=== PATIENT | female | born 1975 ===

== ENCOUNTER 2021-11-23 08:08 | Outpatient (REF) | payer OTHER, SELFPAY ==
[2021-11-23 11:23] LABS: MANUAL DIFF FLAG NO
[2021-11-23 11:26] LABS: Basophils Percent Auto 0.5 % (0-2); Eosinophils Absolute Auto 0.1 X10*3/uL (0.0-0.4); Eosinophils Percent Auto 1.6 % (0-4); Hemoglobin 13.1 g/dl (12.0-16.0); Imm Gran Abs Auto 0.01 X10*3/uL (0.00-0.03); Imm Gran Pct Auto 0.2 % (0.0-0.4); Lymphocytes Absolute Auto 1.6 X10*3/uL (1.2-4.9); Lymphocytes Percent Auto 24.8 % (20-40); Mean Corpuscular HGB Conc 33.6 g/dl (31.0-35.0); Mean Corpuscular Hemoglobin 28.7 pg (27.0-33.0); Mean Corpuscular Volume 85.3 fL (80.0-98.0); Monocytes Absolute Auto 0.6 X10*3/uL (0.1-1.2); Monocytes Percent Auto 9.8 % (2-11); Neutrophils Percent Auto 63.1 % (45-73); Platelet Count 366 X10*3/uL (160-400); Red Blood Count 4.57 X10*6/uL (4.20-5.50); Red Cell Distribution Width 13.5 % (11.0-16.0); White Blood Count 6.3 X10*3/uL (4.8-10.8)
[2021-11-23 11:39] LABS: Alanine Aminotransferase 20 U/L (0-31); Albumin Level 4.7 g/dL (3.5-5.0); Alkaline Phosphatase 83 U/L (39-117); Anion Gap 13 (12-20); Aspartate Amino Transferase 18 U/L (5-31); Bilirubin Total 0.4 mg/dL (0.0-1.0); Blood Urea Nitrogen 17 mg/dL (9-16); Calcium 9.9 mg/dL (8.4-10.2); Carbon Dioxide 29 mmol/L (22-29); Chloride 99 mmol/L (96-108); Cholesterol 195 mg/dL; Estimated Glomerular Filt Rate > 60; Glucose Fasting 100 mg/dL (60-99); HDL Cholesterol 57 mg/dL; LDL Cholesterol Calculated 118 mg/dl; Potassium 4.1 mmol/L (3.3-5.1); Sodium 137 mmol/L (135-145); Total Protein 7.9 g/dL (6.5-8.0); Triglycerides 103 mg/dL
[2021-11-23 12:03] LABS: Vitamin D 25-OH Total 31.6 ng/mL (>30)
== END 2021-11-23 08:09 | disposition home or self-care (01) ==
LOC: HO.HMGCLDS 08:08
PROVIDERS: PCP Internal Medicine; Visit Provider Internal Medicine
DX: Z00.01 Encounter for general adult medical examination with abnormal findings (principal); E28.2 Polycystic ovarian syndrome; L68.0 Hirsutism
CPT/HCPCS: 36415; 80053; 80061; 82306; 85025

== ENCOUNTER 2021-12-19 07:29 | Outpatient (REF) | payer OTHER, SELFPAY ==
--- NOTE | ~2021-12-19 | XR_ITS ---
EXAMINATION: XR KNEES, STANDING AP XR KNEE, LEFT CLINICAL INFORMATION: Knee pain COMPARISON: None TECHNIQUE: Standing AP view of both knees is performed along with lateral and axial patella views of the left knee. FINDINGS: Left: No fracture, dislocation, or suprapatellar effusion. No joint narrowing or erosive changes or chondrocalcinosis. Hoffa's fat pad appears normal. Axial view patella shows no lateralization or tilting. Normal bony mineralization. No destructive process or periostitis. Right: No joint narrowing or erosive change or chondrocalcinosis. Normal bony mineralization. No fracture or destructive process. XR/XR knee standing BI IMPRESSION: Unremarkable bilateral knees.
--- NOTE | ~2021-12-19 | XR_ITS ---
EXAMINATION: XR KNEES, STANDING AP XR KNEE, LEFT CLINICAL INFORMATION: Knee pain COMPARISON: None TECHNIQUE: Standing AP view of both knees is performed along with lateral and axial patella views of the left knee. FINDINGS: Left: No fracture, dislocation, or suprapatellar effusion. No joint narrowing or erosive changes or chondrocalcinosis. Hoffa's fat pad appears normal. Axial view patella shows no lateralization or tilting. Normal bony mineralization. No destructive process or periostitis. Right: No joint narrowing or erosive change or chondrocalcinosis. Normal bony mineralization. No fracture or destructive process. XR/XR knee LT 2V IMPRESSION: Unremarkable bilateral knees.
== END 2021-12-19 07:30 | disposition home or self-care (01) ==
LOC: HO.HOSX 07:29
PROVIDERS: Visit Provider Physician Assistant
DX: M25.562 Pain in left knee (principal); M22.2X2 Patellofemoral disorders, left knee; R11.2 Nausea with vomiting, unspecified; R10.9 Unspecified abdominal pain; T40.2X5A Adverse effect of other opioids, initial encounter; Y92.9 Unspecified place or not applicable; Z87.891 Personal history of nicotine dependence
CPT/HCPCS: 20610; 73560; 73565; 99202; J1020

== ENCOUNTER 2022-01-12 11:00 | Outpatient (RCR) | payer OTHER, SELFPAY ==
--- NOTE | 2022-01-02 10:49 | MHC.PT.EP ---
[facility] [place] Office [place] Office [place] Office [address] [phone] F: [phone] F: [phone] F: [phone] F: [phone] Physical Therapy Plan of Care Date of Evaluation: Date of Surgery: n/a Diagnosis: L knee patellofemoral disorder Assessment: Patient is a 46 year old female presenting to PT with complaints of pain in her L knee. Pt reports onset of pain began initially 10 years due to insidious onset. She presents today with impairments in pain, ROM, hip strength, balance, and quad muscle length/soft tissue restrictions. Pt's current occupation is none, with baseline physical activities including ambulation, stair negotiation, ADLs, and squatting. Pt expresses residential goal of reducing pain, and is motivated to work towards this in PT. Clinical presentation today is most consistent with signs and sx associated with possible L patellofemoral syndrome and pt will benefit from skilled PT to address the following problems and impairments noted upon evaluation: pain, ROM, hip strength, balance, and quad muscle length/soft tissue restrictions. These problems limit the patient with the following functional activities: ambulation, stair negotiation, ADLs, and squatting. The prescribed treatment plan of care is medically necessary. Co-morbidities of none were identified and taken into considerations of plan of care. Pt was educated on HEP, role of PT, prognosis, POC. Frequency and Duration: The patient will be seen 2 x week x 4 weeks Short Term Goals: Pt will demonstrate equal ROM for knee flexion in 2 weeks. Pt will demonstrate improved hip strength by 1/3 MMT for improved lumbopelvic stability in 2 weeks. Pt will demonstrate negative prone quad test in 2 weeks for improved muscle length. [employer] Goals: Pt will demonstrate improved LEFI score by 9 points in 4 weeks for improved overall functional mobility. Pt will demonstrate ability to ambulate with min to no pain in 4 weeks for return to PLOF. Pt will demonstrate ability to negotiate stairs with min to no pain in 4 weeks for improved access to her home. Treatment Plan: Modalities to reduce pain, spasms and effusion. Manual therapy to restore motion and function. Therapeutic exercise to improve strength and flexibility. Neuromuscular re-education for posture and balance. Therapeutic activities to return to functional activities of daily living. Electronically signed by: Fouzia Santana PT, DPT, ATC Please sign and return to therapist. Thank you for your referral.
--- NOTE | 2022-01-16 09:17 | MHC.PT.DC ---
[facility] [place] Office [place] Office [place] Office [address] [facility] [phone] F: [phone] F: [phone] F: [phone] F: [phone] Physical Therapy Discharge Report Diagnosis: L knee patellofemoral disorder Date of Surgery: n/a Date of Evaluation: 01/02/22 Date of Discharge: 01/16/22 Treatments to Date: 4 Cancellations to Date: 1 No Shows to Date: 0 Discharge Status: Patient Elected to Stop Discharge Summary: Pt self d/c from skilled PT at this time. She called stating she feels better and will continue with her HEP at home. Electronically signed by: Fouzia Santana, PT, DPT, ATC Please sign and return to therapist. Thank you for your referral.
== END 2022-01-16 09:17 | disposition home or self-care (01) ==
LOC: HO.PTCHIC 11:00
PROVIDERS: PCP Internal Medicine; Visit Provider Physician Assistant
DX: M22.2X2 Patellofemoral disorders, left knee (principal)
CPT/HCPCS: 97110; 97140; 97161

== ENCOUNTER → 2022-02-16 13:44 | Outpatient (BNVA) | payer OTHER, SELFPAY | PROVIDERS: PCP Internal Medicine; Visit Provider Nurse Practitioner | DX: K21.9 Gastro-esophageal reflux disease without esophagitis (principal); K58.9 Irritable bowel syndrome, unspecified | CPT/HCPCS: 99212 ==

== ENCOUNTER 2022-03-28 14:17 | Outpatient (REF) | payer OTHER, SELFPAY ==
[2022-03-31 13:02] LABS: HPV mRNA E6/E7 rflx Not Detected (Not Detected)
== END 2022-03-28 14:18 | disposition home or self-care (01) ==
LOC: HO.LAB 14:17
PROVIDERS: PCP Internal Medicine; Visit Provider Advanced Practice Midwife
DX: Z01.419 Encounter for gynecological examination (general) (routine) without abnormal findings (principal)
CPT/HCPCS: 87624; 88142

== ENCOUNTER 2022-10-11 06:18 | Day surgery (SDC) | payer OTHER, SELFPAY ==
[2022-10-05 11:45] VITALS: BMI 32.8
--- NOTE | 2022-10-10 10:14 | HO.ANESPROP2 ---
Documented by User: Susie Liz NP 10/10/22 10:17 HPI - Anesthesia Eval Consult details Narrative: 47yo F for Colonoscopy PMFSH Active Problems Active Problems: All Active Problems (Updated 02/06/22 @ 11:37 by VAZQUEZ Boland) Patellofemoral syndrome of left knee (Acute) IBS (irritable bowel syndrome) (Acute) GERD (gastroesophageal reflux disease) (Acute) Alcohol use disorder, mild, abuse (Acute) Left lateral knee pain (Acute) PCOS (polycystic ovarian syndrome) (Acute) Hirsutism (Acute) Past Medical History Medical History Alcohol use disorder, mild, abuse GERD (gastroesophageal reflux disease) Hirsutism History of in vitro fertilization Left lateral knee pain PCOS (polycystic ovarian syndrome) Family History Family History Mother History of breast cancer Cervical cancer Family/Other History of breast cancer Surgical History Surgical History H/O esophagogastroduodenoscopy History of section History of cholecystectomy History of tubal ligation Social History Social History Housing: House Alcohol intake: current Alcohol intake frequency: a few times a month Patient Tobacco Use Status: Former Tobacco user Quit Date: >20yrs ago e-Cigarette/Vaping Use: Never Used Use of substances other than those prescribed or required for medical reasons: No Are you DNR?: No Advance Directives: No Advance Directives Information Provided: Yes service: No Current occupational status: unemployed Sexual orientation: Straight/Heterosexual Gender identity: Female Meds Allergies Allergy/AdvReac Type Severity Reaction Status Date / Time codeine AdvReac Intermediate N/V - abd. Verified 10/11/22 06:56 pain Exam Exam Date and Time: October 10, 2022 1014 Height,Weight and Vital Signs: Height 5 ft Weight 76.204 kg Assessment and Plan Assessment Anesthesia Assessment: Chart Reviewed Documented by User: Melania Ruiz MD 10/11/22 07:22 [facility] Past Medical History Medical History Alcohol use disorder, mild, abuse GERD (gastroesophageal reflux disease) Hirsutism History of in vitro fertilization Left lateral knee pain PCOS (polycystic ovarian syndrome) Functional capacity: independent ambulation Patient : No Family History Family History Mother History of breast cancer Cervical cancer Family/Other History of breast cancer Family history of problems with anesthesia: No Surgical History Surgical History H/O esophagogastroduodenoscopy History of section History of cholecystectomy History of tubal ligation History of Problems with Anesthesia: No Social History Social History Housing: House Alcohol intake: current Alcohol intake frequency: a few times a month Patient Tobacco Use Status: Former Tobacco user Quit Date: >20yrs ago e-Cigarette/Vaping Use: Never Used Use of substances other than those prescribed or required for medical reasons: No Are you DNR?: No Advance Directives: No Advance Directives Information Provided: Yes service: No Current occupational status: unemployed Sexual orientation: Straight/Heterosexual Gender identity: Female Meds Allergies Allergy/AdvReac Type Severity Reaction Status Date / Time codeine AdvReac Intermediate N/V - abd. Verified 10/11/22 06:56 pain Exam Airway Mallampati Class: II TM Dist: >3cm Neck ROM: Full Heart: RRR Lungs: CTA Assessment and Plan Final Anesthetic Review Family History of Problems with Anesthesia: No History of Problems with Anesthesia: No ASA Class: II Final Preanesthetic Review: No Changes in Pt Med Stat, Meds/Allgs Chart Reviewed, Consent Obtained/Reviewed and Anes Risks/Benef Reviewed Patient Risk: Low Procedure Risk: Low Anesthetic Plan Anesthetic Plan: MAC: Disposition: Standard PACU
[2022-10-11 06:35] VITALS: BP 139/86; PULSE 107; RESP 15; TEMP 37.2; O2SAT 99
[2022-10-11] MEDS: Lactated Ringers 1,000 ML 100 ML IVCONT (06:56)
--- NOTE | 2022-10-11 07:26 | MHC.SHP ---
Pre-Procedural Eval Section A Date of Service: 10/11/22 Section B Chief Complaint: Screening Details of Present Illness: 47 y.o F with PMH of GERD, IBS, PCOS, who is here for her index screening colonoscopy. Present Medications: see Short Stay Collaborative assessment Allergies: Allergies Allergy/AdvReac Type Severity Reaction Status Date / Time codeine AdvReac Intermediate N/V - abd. Verified 10/11/22 06:56 pain Review of Systems Review of Systems Comment: 10 point ROS negative except as above Exam Exam Comment: Gen appear: No acute distress, well nourished HEENT: no icterus Chest: No overt resp distress Abd: soft, nontender, nondistended Psych: Stable affect, answering questions appropriately Neuro: A/Ox3 noted to move all extremities spontaneously Ext: no peripheral edema Plan Diagnosis/Plan: Unchanged I have reviewed the history and physical and performed a pertinent physical examination on my patient. No changes have occurred unless specified. Time Spent With Patient Time: Total time managing care of this patient today ____ minutes.
--- NOTE | 2022-10-11 07:28 | P.OP_ITS ---
Operative Note Operative Note Date of Service: 10/11/22 Narrative: Procedure: Colonoscopy Indication: Screening Endoscopist: Angélica Cat MD Anesthesia Provider: Maggie Suazo CRNA Anesthesia type: MAC Instrument: Olympus [id number]-H190L Consent: Indication, risks vs benefits, and alternatives were discussed with the patient who gave written informed consent to proceed. EKG, pulse, pulse oximetry and blood pressure were monitored throughout the procedure. Please see anesthesia flowsheet. Procedure: The patient was brought to the procedure room and placed in the left lateral decubitus position. IV medications were administered by the anesthesia provider in attendance. A digital rectal exam was performed which was normal. The colonoscope was then inserted through the anus and advanced through the colon to the cecum at 80 cm, and terminal ileum. Appendiceal orifice and ileocecal valve were identified. Mucosa was carefully examined under high definition white light as the instrument was slowly withdrawn in a retrograde panoramic fashion. Retroflexion was performed in ascending colon and rectum. The procedure was not difficult. There were no immediate obvious complications. The quality of the prep was BBPS: 3+3+3 = excellent Withdrawal time 16 minutes. Limitations: No limitations. Findings: Mucosa: Normal to cecum and terminal ileum. Protruding lesions: * 1 semi-pedunculated polyp of size 8 mm in sigmoid colon. Hot snare polypectomy was performed. The polyp was completely removed and retrieved. * 1 sessile polyp of size 6 mm in sigmoid colon. Cold snare polypectomy was performed. The polyp was completely removed and retrieved. * Medium external hemorrhoids without stigmata of recent bleeding. Excavated lesions: * Few small mouthed diverticula in the sigmoid colon. Impression: 1. Normal colon and terminal ileum mucosa 2. Total of 2 polyps removed from sigmoid colon. 3. Mild sigmoid diverticulosis 4. Internal hemorrhoids Recommendations: - Follow path results. - Repeat colonoscopy in 7-10 years if polyps are adenomas.
[2022-10-11 08:14] VITALS: BP 121/76; PULSE 92; RESP 16; TEMP 36.8; O2SAT 100
[2022-10-11 08:29] VITALS: BP 121/72; PULSE 84; RESP 16; TEMP 36.4; O2SAT 100
--- NOTE | 2022-10-11 09:12 | HO.POSTANES ---
Post Anesthesia Evaluation Post Anesthesia Evaluation Vital Signs: Vital Signs Temp Pulse Resp BP Pulse Ox O2 Del Method 10/11/22 08:29 97.6 F 84 16 121/72 100 Room Air 10/11/22 08:14 98.2 F 92 16 121/76 100 Room Air 10/11/22 06:35 98.9 F 107 H 15 139/86 99 Room Air Anesthesia: Monitored Mental Status: Awake Pain Control: Satisfactory Nausea/Vomiting: None Hydration: Adequate Anesthesia-Related Issues: No Anes. Related Issues
== END 2022-10-11 09:08 ==
PROVIDERS: PCP Internal Medicine; Visit Provider Internal Medicine
PROC: 0DJD8ZZ Inspection of Lower Intestinal Tract, Via Natural or Artificial Opening Endoscopic (ICD-10-PCS; CPT 45378; principal; 2022-10-11 07:30)
DX: Z12.11 Encounter for screening for malignant neoplasm of colon (principal); D12.5 Benign neoplasm of sigmoid colon; K57.30 Diverticulosis of large intestine without perforation or abscess without bleeding; K64.8 Other hemorrhoids; K64.4 Residual hemorrhoidal skin tags; K58.9 Irritable bowel syndrome, unspecified; K21.9 Gastro-esophageal reflux disease without esophagitis; F10.10 Alcohol abuse, uncomplicated; E28.2 Polycystic ovarian syndrome; L68.0 Hirsutism; Z79.899 Other long term (current) drug therapy; Z88.8 Allergy status to other drugs, medicaments and biological substances; Z90.49 Acquired absence of other specified parts of digestive tract; Z87.891 Personal history of nicotine dependence
CPT/HCPCS: 45385; 88305

== ENCOUNTER → 2022-10-25 12:00 | Outpatient (BNVA) | payer OTHER, SELFPAY | PROVIDERS: PCP Internal Medicine; Referring Provider Internal Medicine; Visit Provider Nurse Practitioner | DX: K21.9 Gastro-esophageal reflux disease without esophagitis (principal); K58.9 Irritable bowel syndrome, unspecified; D12.6 Benign neoplasm of colon, unspecified | CPT/HCPCS: 99212 ==

== ENCOUNTER → 2023-04-02 14:08 | Outpatient (BNVA) | payer OTHER, SELFPAY | PROVIDERS: PCP Internal Medicine; Visit Provider Advanced Practice Midwife ==

== ENCOUNTER → 2023-04-18 11:36 | Outpatient (BNVA) | payer OTHER, SELFPAY | PROVIDERS: Visit Provider Nurse Practitioner | DX: K58.9 Irritable bowel syndrome, unspecified (principal); K21.9 Gastro-esophageal reflux disease without esophagitis; Z79.899 Other long term (current) drug therapy | CPT/HCPCS: 99212 ==

== ENCOUNTER 2023-08-20 12:17 | Outpatient (AMB) | payer OTHER, SELFPAY ==
[2023-08-20 12:27] VITALS: BP 144/88; PULSE 79; O2SAT 99; BMI 34.0
--- NOTE | 2023-08-20 12:27 | MHC.PC.OV ---
Vital Signs 08/20/23 12:27 Height 5 ft Weight 174 lb BMI 34.0 BP 144/88 H Blood Pressure Location Rt brachial Position Sitting Pulse 79 Pulse Source Pulse Oximeter Pulse Oximetry (%) 99 Oxygen Delivery Method Room Air Intake Visit Reasons: Physical Exam Intake Note: Pt is here today for her PE Is last menstrual period known: Yes Last menstrual period: 08/03/23 Allergies codeine Adverse Reaction (Intermediate, Verified 08/20/23 13:07) N/V - abd. pain Medication List - Last Reconciled 08/20/23 by Yee Rosas MD famotidine 40 mg PO BEDTIME vdzzqn-cywcldap-nklbmxt 3,000-9,500- 15,000 unit (Creon) 1 cap PO .QIDAC 90 days sennosides (Senna Lax) 8.6 - 17.2 mg (1 - 2 x 8.6 mg) PO BEDTIME spironolactone (Aldactone) 100 mg PO BID 90 days Tobacco use date assessed: 11/22/21 Dental Screening Dental Screen Date: 08/20/23 Did you have a dental visit in the last 12 months?: Yes Did you have a dental problem in the last 6 months where you did not have access to dental care?: No Was dental information given to patient?: Patient has dentist HPI Physical Exam HPI Details 48 year old lady here for her Physical exam. She has PCOS currently being followed by OBGYN and is on Aldactone 100 mg 1 tablet twice a day. Patient however has not been taking her medication regularly and often just takes it twice or 3 times a week. She has GERD, currently controlled with famotidine and i takes Creon for control of her IBS which has been helping. She is up-to-date with her cervical cancer screening, goes to [facility] and is up-to-date with her screening mammogram due again in September 2023. She is also up-to-date with her colonoscopy, last done in 2021 with removal of a tubular adenoma. She is due for recheck in 2026. She has had her COVID vaccine, but does not want to get the booster, but asking for to get her flu shot today [facility] Medical History (Updated 08/20/23 @ 13:23 by Yee Rosas MD) GERD (gastroesophageal reflux disease) History of in vitro fertilization Left lateral knee pain PCOS (polycystic ovarian syndrome) Surgical History Hx of colonoscopy H/O esophagogastroduodenoscopy History of section History of cholecystectomy History of tubal ligation Family History Mother History of breast cancer Cervical cancer Family/Other History of breast cancer Social History Housing: House Alcohol intake: current Alcohol intake frequency: a few times a month Patient Tobacco Use Status: Former Tobacco user Quit Date: >20yrs ago e-Cigarette/Vaping Use: Never Used service: No Current occupational status: unemployed Sexual orientation: Straight/Heterosexual Gender identity: Female Cognitive needs: No Hearing needs: No Vision needs: Yes Female Reproductive History Menstrual Date of last menstrual period: 08/03/23 control method: permanent sterilization Questionnaire PHQ-9 Over the last 2 weeks, how often have you been bothered by any of the following problems? 1. Little interest or pleasure in doing things: not at all 2. Feeling down, depressed, or hopeless: not at all 3. Trouble falling or staying asleep, or sleeping too much: not at all 4. Feeling tired or having little energy: not at all 5. Poor appetite or overeating: not at all 6. Feeling bad about yourself - or that you are a failure or have let yourself or your family down: not at all 7. Trouble concentrating on things, such as reading the newspaper or watching television: not at all 8. Moving or speaking so slowly that other people could have noticed. Or the opposite - being so fidgety or restless that you have been moving around a lot more than usual: not at all 9. Thoughts that you would be better off or of hurting yourself in some way: not at all Total score: 0 Depression Screening Interpretation: Negative Depression Screening Done: Yes [id number] - PHQ-9 Billing: Yes Source: Developed by Drs. Clif Bullard, Teresa Pinto, Usman Singh and colleagues, with an educational darron from [employer]. Thrive Questionnaire Date Thrive assessed: 08/20/23 I am a: Patient What is your living situation today?: I have a steady place to live Within the past 12 months, did the food you bought not last and you didn't have the money to get more?: Never true Within the past 12 months, did you worry whether your food would run out before you got money to buy more?: Never true Do you have trouble paying for medicines?: No Do you have trouble getting transportation to medical appointments?: No Do you have trouble paying your heating and electricity bill?: No Do you have trouble taking care of your child, family member or friend?: No Do you have trouble with day-to-day activities such as bathing, preparing meals, shopping, managing finances, etc.?: No Are you currently unemployed and looking for a job?: No Are you interested in more education?: No AUDIT C Alcohol Use Questionnaire (AUDIT-C) 1. How often do you have a drink containing alcohol?: Monthly or less 2. How many drinks containing alcohol do you have on a typical day when you are drinking?: 1 or 2 3. How often do you have six or more drinks on one occasion?: Never Total Score: 1 WYATT-7 AMB Questionnaire WYATT-7 Date WYATT - 7 assessed: 11/22/21 Source: Developed by Drs. Clif Bullard, Teresa Pinto, Usman Singh and colleagues, with an educational darron from [employer]. Review of Systems Const Denies body aches, Denies fatigue, Denies fever(s), Denies headache(s) and Denies weakness Eyes Denies change in vision ENT Denies dizziness, Denies headache(s), Denies nasal congestion, Denies nasal discharge and Denies sore throat Card Denies chest pain, Denies lightheadedness, Denies palpitations and Denies dyspnea Resp Denies chest congestion, Denies cough, Denies dyspnea and Denies wheezing GI Denies abdominal pain, Denies melena and Denies heartburn (Controlled on famotidine) Denies urinary frequency, Denies dysuria and Denies urinary urgency Musc Reports no additional complaints Skin/Breast Denies breast swelling, Denies breast pain, Denies breast mass, Denies lesions and Denies rash Neuro Denies dizziness, Denies headache(s) and Denies weakness Psych Reports no additional complaints and Reports as per HPI Endo Denies fatigue, Denies polydipsia, Denies polyuria and Denies palpitations Dex/Lymph Denies easy bleeding and Denies easy bruising Aller/Immun Denies seasonal rhinorrhea and Denies wheezing Physical exam (Primary Care) Vital Signs: Last Vital Signs Pulse 79 08/20/23 12:27 BP 144/88 H 08/20/23 12:27 Pulse Ox 99 08/20/23 12:27 Oxygen Delivery Method Room Air 08/20/23 12:27 BMI result Body Mass Index 34.0 BMI Assessment/Plan discussion: High BMI High, discussed plan: lifestyle, weight reduction, dietary and physical activity Tobacco/Smoking Status: Tobacco use Status Tobacco use date assessed 11/22/21 08/20/23 12:30 Patient Tobacco Use Status Former Tobacco user 08/20/23 12:30 e-Cigarette/Vaping Use Never Used 08/20/23 12:30 PHQ-9: PHQ-9 Score PHQ-9: Total score 0 08/20/23 13:17 Depression Screening Interpretation: Negative Thrive Assessment: Date of Thrive Assessment Date Thrive assessed 08/20/23 08/20/23 12:30 Const General: no acute distress and alert Nutritional Appearance: obese Orientation/consciousness: patient oriented x3 HENMT Head: Yes normocephalic and Yes atraumatic Ears: hearing grossly normal bilaterally, external ears normal and EAC's normal General nose exam: Normal external nose present Face and sinus: Yes normal facial exam, Yes sinuses nontender and Yes face symmetric Mouth: moist mucous membranes Eyes General: appearance normal, both eyes and all related structures Neck Neck: Yes full ROM, Yes no lymphadenopathy, Yes no meningeal signs and Yes supple Thyroid: Thyroid normal Chest Breast/axilla palpation: normal palpation of the breasts Resp Effort & Inspection: normal respiratory effort and able to speak in complete sentences Auscultation: clear to auscultation bilaterally Cardio Rate: regular rate Rhythm: regular rhythm Heart sounds: S1 normal heart sound present and S2 normal heart sound present GI Inspection: Yes obesity Palpation (GI): Soft to palpation, nontender and no guarding Auscultation: normal bowel sounds Other: Sees sex crimes detective in [place] for her routine Pap and pelvic exam Back/Spine/Pelvis Back: No back tenderness Skin Other: Positive hirsutism - chin area General skin exam: no rashes or lesions noted Neuro General: patient oriented x3, gait normal, moves all extremities, no meningeal signs, no focal motor deficits and CN's II-XI intact bilaterally Extrem Other: No gross bone deformity, slight tenderness on palpation over lateral aspect of left knee General: Yes full ROM, Yes no joint enlargement and Yes no pedal edema Psych Appearance: grossly normal Mental Status: mental status grossly normal Speech and movement: Normal speech and movement present Affect: normal affect Attitude: cooperative Thought process: Normal thought process present Office Procedures Flu Questionnaire Does the patient have a severe egg allergy?: No Does the patient have severe life threatening allergies?: No Does the patient have a fever or illness today?: No Has the patient ever had Guillain-[place] Syndrome?: No Has the patient ever had any past reaction to a flu shot?: No Immunizations flu vacc [id number] 6mos up(PF) 60 mcg(15 mcgx4)/0.5 mL IM syringe Performing Provider: Yee Rosas MD Performing Location: [facility] Administered by: Marie Bush CMA on 08/20/23 13:12 Dose Route Admin Location Dispensed Lot Number Expiration Date NDC Environmental Services Technician 0.5 mL IM Right Deltoid 0.5 mL [id number] 04/26/24 [id number] Fon VIS Given Date VIS Provided VIS Publication Date 08/20/23 Single Vaccine 21 Eligibility Eligibility Date Funding Source Not [facility] Eligible 08/20/23 Private Assessment and Plan Assessment & Plan (1) GERD (gastroesophageal reflux disease): Code(s): K21.9 - Gastro-esophageal reflux disease without esophagitis Qualifiers: Esophagitis presence: without esophagitis Qualified Code(s): K21.9 - Gastro-esophageal reflux disease without esophagitis Plan: Controlled on famotidine, followed by [facility] (2) PCOS (polycystic ovarian syndrome): Code(s): E28.2 - Polycystic ovarian syndrome Plan: Advised to take alendronate regularly as directed. Followed by OBGYN at [place] (3) Annual visit for general adult medical examination with abnormal findings: Code(s): Z00.01 - Encounter for general adult medical examination with abnormal findings Plan: Will check appropriate labs. Recommended dental visit every 6 months and regular eye exams, at least every 2 years. Take adequate calcium in diet and vitamin-D 3 at 2000 IU per cap once a day, in addition to weight-bearing exercises to help maintain good muscle tone and weight control. Instructed to do self-breast exam, and continue to get yearly mammogram, currently up-to-date. She is also up-to-date with her cervical cancer screening, goes to [facility] and is up-to-date with her screening colonoscopy, due again in 2026. Flu vaccine given today, patient however declines getting COVID boosters (4) Flu vaccine need: Code(s): Z23 - Encounter for immunization Plan: Flu vaccine given today Orders: Orders Lipid Panel Today E28.2 - Polycystic ovarian syndrome, K21.9 - Gastro-esophageal reflux disease without esophagitis, Z00.01 - Encounter for general adult medical examination with abnormal findings Basic Metabolic Panel Fasting Today E28.2 - Polycystic ovarian syndrome, K21.9 - Gastro-esophageal reflux disease without esophagitis, Z00.01 - Encounter for general adult medical examination with abnormal findings Alanine Aminotransferase Today E28.2 - Polycystic ovarian syndrome, K21.9 - Gastro-esophageal reflux disease without esophagitis, Z00.01 - Encounter for general adult medical examination with abnormal findings Aspartate Amino Transferase Today E28.2 - Polycystic ovarian syndrome, K21.9 - Gastro-esophageal reflux disease without esophagitis, Z00.01 - Encounter for general adult medical examination with abnormal findings Influenza [id number] Immunization Today Z23 - Encounter for immunization Coding Level of Care Code Est Pt Prev Care 40-64y(86213) Diagnoses Gastroesophageal reflux disease without esophagitis K21.9 Esophagitis presence: without esophagitis PCOS (polycystic ovarian syndrome) E28.2 Annual visit for general adult medical examination with abnormal findings Z00.01 Flu vaccine need Z23
== END 2023-08-20 14:28 | disposition home or self-care (01) ==
PROVIDERS: Visit Provider Internal Medicine
DX: Z00.00 Encounter for general adult medical examination without abnormal findings (principal); K21.9 Gastro-esophageal reflux disease without esophagitis; E28.2 Polycystic ovarian syndrome; Z23 Encounter for immunization
CPT/HCPCS: 90471; 90686; 99396

== ENCOUNTER 2023-08-26 09:31 | Outpatient (REF) | payer OTHER, SELFPAY ==
[2023-08-26 12:33] LABS: Alanine Aminotransferase 23 U/L (0-31); Anion Gap 14 (12-20); Aspartate Amino Transferase 17 U/L (5-31); Blood Urea Nitrogen 15 mg/dL (9-16); Carbon Dioxide 25 mmol/L (22-29); Chloride 104 mmol/L (96-108); Cholesterol 169 mg/dL (<200); Estimated Glomerular Filt Rate > 60; Glucose Fasting 97 mg/dL (60-99); HDL Cholesterol 44 mg/dL (>40); LDL Cholesterol Calculated 108 mg/dL (<100); Sodium 139 mmol/L (135-145); Triglycerides 85 mg/dL (<150)
== END 2023-08-26 09:32 | disposition home or self-care (01) ==
LOC: HO.HMGCLDS 09:31
PROVIDERS: PCP Internal Medicine; Visit Provider Internal Medicine
DX: Z00.01 Encounter for general adult medical examination with abnormal findings (principal); K21.9 Gastro-esophageal reflux disease without esophagitis; E28.2 Polycystic ovarian syndrome
CPT/HCPCS: 36415; 80048; 80061; 84450; 84460

== ENCOUNTER 2023-10-16 12:13 | Outpatient (AMB) | payer OTHER, SELFPAY ==
--- NOTE | 2023-10-16 12:21 | MHC.OFFVIS ---
Intake Vital Signs 10/16/23 12:22 Height 5 ft Weight 175 lb 7.807 oz BMI 34.3 BP 122/65 Blood Pressure Location Lt brachial Position Sitting Pulse 86 Pulse Source Pulse Oximeter Intake Visit Reasons: 6 month fu Intake Note: Pt presents to the office today for a 6 month follow up. Pt states she is feeling well. Pt states her acid reflux isnt as bad anymore and denies any N/V/D or stomach pain. Allergies codeine Adverse Reaction (Intermediate, Verified 10/16/23 12:25) N/V - abd. pain HPI 6 month fu HPI Details Assessment & Plan (1) IBS (irritable bowel syndrome): Code(s): K58.9 - Irritable bowel syndrome without diarrhea Plan: Maltese # She continues to do very well.She continues on her Creon and senna with good control of her bowels and she is pleased with the famotidine for her occasional heartburn.? Return office visit in 6 months (2) GERD (gastroesophageal reflux disease): Code(s): K21.9 - Gastro-esophageal reflux disease without esophagitis Medications: Refilled sennosides (Senna Lax) Take 1-2 c apsules by mouth a t bedtime 8.6 - 17.2 mg (1 - 2 x 8.6 mg) PO BE DTIME 60 tabs 6RF constipation phlsmj-pcoinmmr-an ylase 3,000-9,500- 15,000 unit (Creo n) Take one cap prem by mouth 15-3 0 minutes before m eals 1 cap PO .QIDAC 9 0 days 360 caps 1R F sennosides (Senna Lax) Take 1-2 c apsules by mouth a t bedtime 8.6 - 17.2 mg (1 - 2 x 8.6 mg) PO BE DTIME 60 tabs 6RF constipation TODAY'S VISIT Maltese # translates per pt request. She continues to do well. She continues on her Creon and senna with good control of her bowels and she is pleased with the famotidine for her occasional heartburn.? ROV 6 mos. PFSH Medical History GERD (gastroesophageal reflux disease) History of in vitro fertilization Left lateral knee pain PCOS (polycystic ovarian syndrome) Surgical History Hx of colonoscopy H/O esophagogastroduodenoscopy History of section History of cholecystectomy History of tubal ligation Family History Mother History of breast cancer Cervical cancer Family/Other History of breast cancer Social History Housing: House Alcohol intake: current Alcohol intake frequency: a few times a month Patient Tobacco Use Status: Former Tobacco user Quit Date: >20yrs ago e-Cigarette/Vaping Use: Never Used service: No Current occupational status: unemployed Sexual orientation: Straight/Heterosexual Gender identity: Female Cognitive needs: No Hearing needs: No Vision needs: Yes Review of Systems Const Denies fatigue, Denies fever(s), Denies night sweats, Denies poor appetite and Denies weight loss ENT Reports Normal hearing present, Denies dental pain, Denies dysphagia, Denies hearing loss, Denies mouth pain, Denies odynophagia, Denies throat swelling, Denies tongue swelling and Reports other (Dentition adequate) Card Reports no additional complaints Resp Reports no additional complaints GI Denies abdominal pain, Denies melena, Reports bloating, Denies hematochezia, Denies constipation, Denies GI cramping, Denies dysphagia, Denies excessive flatus, Denies early satiety, Reports heartburn, Denies diarrhea, Reports loose stools, Denies nausea, Denies odynophagia, Denies vomiting and Denies hematemesis Skin/Breast Denies pruritus, Denies lesions, Denies rash and Denies jaundice Neuro Reports Normal hearing present and Denies Abnormal speech present Endo Denies fatigue Aller/Immun Denies throat swelling and Denies tongue swelling Physical Exam Vital Signs: Last Vital Signs Pulse 86 10/16/23 12:22 BP 122/65 10/16/23 12:22 BMI result Body Mass Index 34.3 Const General: cooperative, no acute distress, well developed and well groomed Nutritional Appearance: well nourished and obese Orientation/consciousness: oriented to person, oriented to place and oriented to time Limitations: language barrier HEENT Head: Yes normocephalic and Yes atraumatic Eyes General: appearance normal, both eyes and all related structures Pupils: Equal, round and reactive pupils present Neck Neck: Yes normal visual inspection and Yes no lymphadenopathy Thyroid: Thyroid normal Resp Effort & Inspection: normal respiratory effort and able to speak in complete sentences Auscultation: clear to auscultation bilaterally Cardio Rate: regular rate Rhythm: regular rhythm Heart sounds: Normal, physiologic split S2 sound present Peripheral pulses: radial pulses present and posterior tibial pulses present GI Inspection: No distended, Yes Abdominal panniculus present and Yes obesity Palpation (GI): Soft to palpation, nontender, no guarding, not rigid and No hepatosplenomegaly present Percussion: Yes normal to percussion Auscultation: normal bowel sounds Rectal Exam - Female: deferred Skin General skin exam: no rashes or lesions noted, turgor normal, skin not dry, no jaundice, No spider nevi and no striae Rashes: no rashes Nails: normal Neuro General: oriented to person, oriented to place and oriented to time Cranial nerves: Yes Equal, round and reactive pupils present and Yes Normal hearing present Speech: No Abnormal speech present Extrem General: Yes normal to inspection, No clubbing, No cyanosis and No edema Psych Appearance: grossly normal and well kempt Mental Status: mental status grossly normal Speech and movement: Normal speech and movement present Affect: normal affect Attitude: cooperative Thought process: Normal thought process present and not confabulating Thought content: Normal thought content present Insight: Limited insight present (Psych) Judgement: Limited judgement present (Psych) Assessment & Plan Assessment & Plan (1) GERD (gastroesophageal reflux disease): Code(s): K21.9 - Gastro-esophageal reflux disease without esophagitis Qualifiers: Esophagitis presence: without esophagitis Qualified Code(s): K21.9 - Gastro-esophageal reflux disease without esophagitis (2) IBS (irritable bowel syndrome): Comment: Followed by [facility] currently on Creon Code(s): K58.9 - Irritable bowel syndrome without diarrhea Plan Maltese # translates per pt request. She continues to do well. She continues on her Creon and senna with good control of her bowels and she is pleased with the famotidine for her occasional heartburn.? ROV 6 mos. Medications: Changed From famotidine 40 mg PO BEDTIME 30 tabs 11RF K21.9 - Gastro-esophageal reflux disease without esophagitis To famotidine 40 mg PO BEDTIME 90 tabs 1RF 90 days K21.9 - Gastro-esophageal reflux disease without esophagitis Refilled fobodw-ikmrsdds-pnamwqm 3,000-9,500- 15,000 unit (Creon) Take one capsule by mouth 15-30 minutes before meals 1 cap PO .QIDAC 360 caps 1RF 90 days sennosides (Senna Lax) Take 1-2 capsules by mouth at bedtime 8.6 - 17.2 mg (1 - 2 x 8.6 mg) PO BEDTIME 60 tabs 6RF constipation Coding Level of Care Code Est Pt Level 3 (64844) Diagnoses Gastroesophageal reflux disease without esophagitis K21.9 Esophagitis presence: without esophagitis IBS (irritable bowel syndrome) K58.9
[2023-10-16 12:22] VITALS: BP 122/65; PULSE 86; BMI 34.3
== END 2023-10-16 13:58 | disposition home or self-care (01) ==
PROVIDERS: PCP Internal Medicine; Visit Provider Nurse Practitioner
DX: K21.9 Gastro-esophageal reflux disease without esophagitis (principal); K58.9 Irritable bowel syndrome, unspecified
CPT/HCPCS: 99213

== ENCOUNTER → 2023-10-16 12:13 | Outpatient (BNVA) | payer OTHER, SELFPAY | PROVIDERS: PCP Internal Medicine; Visit Provider Nurse Practitioner | DX: K21.9 Gastro-esophageal reflux disease without esophagitis (principal); K58.9 Irritable bowel syndrome, unspecified | CPT/HCPCS: 99212 ==

== ENCOUNTER 2024-03-05 04:41 | Emergency (ER) | payer OTHER, SELFPAY ==
--- NOTE | 2024-03-05 | ECG_ITS ---
Test Reason : palpation Blood Pressure : / mmHG Vent. Rate : 141 BPM Atrial Rate : 141 BPM P-R Int : 120 ms QRS Dur : 084 ms QT Int : 358 ms P-R-T Axes : 063 026 070 degrees QTc Int : 548 ms Sinus tachycardia with Premature supraventricular complexes Nonspecific ST changes Abnormal ECG When compared with ECG of 25-AUG-2015 20:27, Premature supraventricular complexes are now Present Referred By: Generic ED Physician Electronically Signed By:Ez Sahu
--- NOTE | ~2024-03-05 | US_ITS ---
EXAMINATION: US ABDOMEN LIMITED CLINICAL INFORMATION: Right upper quadrant tenderness history of cholecystectomy. COMPARISON: None available. TECHNIQUE: Real-time imaging of the right upper quadrant abdominal viscera. FINDINGS: PANCREAS: The visualized portions of the pancreas are unremarkable but a large portion of the gland is obscured by bowel gas. LIVER: The liver is normal in size. The liver contour is normal. Parenchymal echogenicity is normal. No focal hepatic lesion. There is no intrahepatic biliary duct dilatation seen. GALLBLADDER: Surgically absent. COMMON BILE DUCT: Normal in caliber measuring 0.3 cm in diameter. RIGHT KIDNEY: Normal. No hydronephrosis. No renal calculi or focal parenchymal lesions. The kidney measures 11.0 cm in maximum dimension. FREE FLUID: None. US/US abdomen limited IMPRESSION: No significant abnormality seen status post cholecystectomy
[2024-03-05 05:04] VITALS: BP 154/81; PULSE 116; RESP 20; TEMP 36.3; O2SAT 100; BMI 34.2
[2024-03-05 05:17] LABS: Basophils Absolute Auto 0.1 X10*3/uL (0.0-0.2); Basophils Percent Auto 0.6 % (0-2); Eosinophils Absolute Auto 0.1 X10*3/uL (0.0-0.4); Hematocrit 37.1 % (37.0-47.0); Hemoglobin 12.9 g/dl (12.0-16.0); Imm Gran Abs Auto 0.02 X10*3/uL (0.00-0.03); Imm Gran Pct Auto 0.2 % (0.0-0.4); Lymphocytes Percent Auto 18.7 % (20-40); MANUAL DIFF FLAG NO; Mean Corpuscular HGB Conc 34.8 g/dl (31.0-35.0); Mean Corpuscular Hemoglobin 28.9 pg (27.0-33.0); Mean Corpuscular Volume 83.2 fL (80.0-98.0); Mean Platelet Volume 9.4 fL (9.4-12.3); Monocytes Absolute Auto 0.8 X10*3/uL (0.1-1.2); Monocytes Percent Auto 7.9 % (2-11); Neutrophils Absolute Auto 7.5 x10*3/uL (2.0-8.3); Neutrophils Percent Auto 71.6 % (45-73); Platelet Count 364 X10*3/uL (160-400); Red Blood Count 4.46 X10*6/uL (4.20-5.50); Red Cell Distribution Width 14.2 % (11.0-16.0); White Blood Count 10.5 X10*3/uL (4.8-10.8)
[2024-03-05 05:29] LABS: Anion Gap 18 (12-20); Blood Urea Nitrogen 10 mg/dL (9-16); Calcium 9.6 mg/dL (8.4-10.2); Carbon Dioxide 22 mmol/L (22-29); Chloride 103 mmol/L (96-108); Creatinine Clr Calc Pharmacy 91.3; Estimated Glomerular Filt Rate > 60; Glucose Random 113 mg/dL (60-115); Potassium 3.5 mmol/L (3.3-5.1); Sodium 139 mmol/L (135-145)
[2024-03-05 05:37] LABS: Troponin-I High Sensitivity < 2.7 ng/L (<3.5-17.0)
[2024-03-05 06:19] VITALS: BP 147/89; PULSE 113; RESP 18; TEMP 37.2; O2SAT 100
--- NOTE | 2024-03-05 06:20 | MHC.EDTECH ---
Patient came in from the waiting room,changed into hospital attire,placed on the wage conciliator and vitals taken,family at bedside and call contreras in reach
--- NOTE | 2024-03-05 06:26 | ED_ITS ---
HPI - General Adult General Chief complaint: Arrhythmia/Palpitations Stated complaint: Palpitations/Nausea/Headache Time Seen by Provider: 03/05/24 06:26 Source: patient Mode of arrival: ambulatory Limitations: no limitations History of Present Illness HPI narrative: Patient is a 48-year-old female with history of IBS, GERD, PCOS, alcohol use disorder, cholecystectomy presenting to the emergency department with complaint of 3 days of headaches, lightheadedness, chest pain, palpitations, fatigue, and diarrhea. She reports two episodes of diarrhea here in the ED. Denies any hematochezia or melena. Reports intermittent nausea but denies vomiting or constipation. Denies fevers, cough, or other URI symptoms. Denies syncope. Denies changes in vision, when asked about reported blurred vision patient clarifies this as lightheadedness. MD complaint: chest pain, palpitations Onset (ago): day(s) Location: chest and abdomen Radiation: back (RUQ to back) Severity: moderate Quality: aching Pain Consistency: colicky Associated symptoms: chest pain and headaches Treatments prior to arrival: none Related Data Previous Rx's ?Medication ?Instructions ?Recorded spironolactone 100 mg tablet 100 mg PO BID 90 days #180 tabs 07/11/23 (Aldactone) famotidine 40 mg tablet 40 mg PO BEDTIME 90 days #90 tabs 10/16/23 [id number] 1 cap PO .QIDAC 90 days #360 caps 10/16/23 3,000-9,500-15,000 unit capsule, delayed rel (Creon) sennosides 8.6 mg tablet (Senna 8.6 - 17.2 mg (1 - 2 x 8.6 mg) PO 10/16/23 Lax) BEDTIME constipation #60 tabs Allergies Allergy/AdvReac Type Severity Reaction Status Date / Time codeine AdvReac Intermediate N/V - abd. Verified 03/05/24 05:07 pain Review of Systems 2 Review of Systems: As per HPI. Yes all other systems are reviewed and are negative Constitutional: Constitutional: Reports as per HPI [facility] Past Medical History Medical History GERD (gastroesophageal reflux disease) History of in vitro fertilization Left lateral knee pain PCOS (polycystic ovarian syndrome) Surgical History Hx of colonoscopy H/O esophagogastroduodenoscopy History of section History of cholecystectomy History of tubal ligation Family History Family History Mother History of breast cancer Cervical cancer Family/Other History of breast cancer Social History Social History Housing: House Alcohol intake: current Alcohol intake frequency: 0-2 drinks per day Alcohol type: beer Patient Tobacco Use Status: Former Tobacco user Quit Date: >20yrs ago Smoked in Last 30 Days: Yes e-Cigarette/Vaping Use: Never Used Use of substances other than those prescribed or required for medical reasons: No Advance Directives: No Advance Directives Information Provided: Yes Do you have a plan to hurt others: No Plan Patient : No service: No Current occupational status: unemployed Sexual orientation: Straight/Heterosexual Gender identity: Female Cognitive needs: No Hearing needs: No Vision needs: Yes Physical Exam ED Vital Signs: Vital Signs - 24 hr 03/05/24 05:04 03/05/24 06:19 03/05/24 08:51 Temperature 97.4 F 99.0 F 99.0 F Pulse Rate 116 H 113 H 107 H Respiratory Rate 20 18 16 Blood Pressure 154/81 H 147/89 H 128/82 Pulse Oximetry 100 100 99 Oxygen Delivery Method Room Air Room Air Room Air BMI result Body Mass Index 34.2 Vital signs have been reviewed and appear to be correct. Blood pressure normal. Heart rate mildly tachycardic. Respiratory rate normal. Temperature normal. Oxygen saturation normal. Const General: cooperative, healthy appearing and no acute distress Orientation/consciousness: oriented to person, oriented to place, oriented to time and patient oriented x3 Limitations: no limitations HENMT Head: Yes normocephalic and Yes atraumatic Ears: external ears normal General nose exam: Normal external nose present Face and sinus: Yes face symmetric Mouth: oropharynx normal and moist mucous membranes Throat: Yes uvula midline Eyes Pupils: Equal, round and reactive pupils present Neck Neck: Yes normal visual inspection and Yes supple Resp Effort & Inspection: normal respiratory effort and able to speak in complete sentences Auscultation: clear to auscultation bilaterally Cardio Rate: regular rate Rhythm: regular rhythm Heart sounds: S1 normal heart sound present and S2 normal heart sound present GI Inspection: Yes normal to inspection Palpation (GI): Soft to palpation, Tenderness to palpation present (GI) in the RUQ, no guarding and No Rebound tenderness present Auscultation: normoactive bowel sounds General: Yes no CVA tenderness Back/Spine/Pelvis Back: no CVA tenderness Skin General skin exam: elasticity normal and turgor normal Neuro General: oriented to person, oriented to place, oriented to time, patient oriented x3, moves all extremities, no focal motor deficits and CN's II-XI intact bilaterally Cranial nerves: Yes Equal, round and reactive pupils present Cognition (Neuro): normal cognition Extrem General: Yes full ROM, Yes no pedal edema and Yes no calf tenderness Psych Mental Status: mental status grossly normal Affect: normal affect Thought process: Normal thought process present Medications Administered Discontinued Medications Generic Name Dose Route Start Last Admin Trade Name Freq PRN Reason Stop Dose Admin Sodium Chloride 1,000 mls @ 999 mls/hr 03/05/24 06:30 03/05/24 08:25 Ns IV 03/05/24 07:30 Infused .Q1H1M REE Infusion Ketorolac Tromethamine 15 mg 03/05/24 08:40 03/05/24 08:47 Ketorolac Tromethamine 15 Mg/Ml Vial IVPUSH 03/05/24 08:41 15 mg ONCE ONE Administration Medical Decision Making Medical Decision Making [facility] Narrative: Patient is a 48-year-old female with history of IBS, GERD, PCOS, alcohol use disorder, cholecystectomy presenting to the emergency department with complaint of 3 days of headaches, lightheadedness, chest pain, palpitations, fatigue, and diarrhea. On exam patient is awake, A+Ox3, tachycardic, VS otherwise WNL, afebrile, normal neurological exam without focal deficits, physical exam findings as above. Given reported symptoms and physical exam findings, initial differential includes viral illness, covid, flu, gastroenteritis, anemia, electrolyte abnormality, dehydration. Less likely ACS. Initial EKG shows sinus tachycardia with premature supraventricular comlexes. Repeat EKG shows sinus tach with premature supraventricular complexes and occasional PVCs. Labs notable for no leukocytosis, no anemia, no electrolyte abnormalities, negative troponin, no evidence of RAMA, mildly elevated TSH with normal free T4. Urinalysis is without evidence of infection. Viral swabs negative. Ultrasound notable for no significant abnormalities. My interpretation is in agreement with the radiologist's interpretation. Patient's HR improved with fluids and pain medication in the ED, currently around 100bpm. Feel symptoms most likely due to a viral illness, and that patient is stable for discharge home at this time. Instructed patient to follow-up with her primary care provider this week. Discussed with patient that she should return to the emergency department for new or worsening symptoms. Patient verbalized understanding of and agreement with plan, feels comfortable with discharge home at this time. Differential Diagnosis Differential Diagnoses: The differential diagnosis associated with the presentation includes As per [facility]. Admission/Observation Consideration of admission/observation: Escalation of care including admission/observation considered Patient would have been admitted to the hospital had their work up had any findings where hospital admission was appropriate and their clinical presentation warranted hospital admission. Lab Data [facility] Lab Attestation statement: I reviewed the patient's lab results. As per [facility] 03/05/24 05:12 03/05/24 05:12 Labs: Lab Results 03/05/24 03/05/24 03/05/24 Range/Units 05:12 06:33 06:39 WBC 10.5 (4.8-10.8) X10*3/uL RBC 4.46 (4.20-5.50) X10*6/uL Hgb 12.9 (12.0-16.0) g/dl Hct 37.1 (37.0-47.0) % MCV 83.2 (80.0-98.0) fL MCH 28.9 (27.0-33.0) pg MCHC 34.8 (31.0-35.0) g/dl RDW 14.2 (11.0-16.0) % Plt Count 364 (160-400) X10*3/uL MPV 9.4 (9.4-12.3) fL Immature Gran % (Auto) 0.2 (0.0-0.4) % Neut % (Auto) 71.6 (45-73) % Lymph % (Auto) 18.7 L (20-40) % Saunders % (Auto) 7.9 (2-11) % Eos % (Auto) 1.0 (0-4) % Baso % (Auto) 0.6 (0-2) % Lymph # (Auto) 2.0 (1.2-4.9) X10*3/uL Saunders # (Auto) 0.8 (0.1-1.2) X10*3/uL Eos # (Auto) 0.1 (0.0-0.4) X10*3/uL Baso # (Auto) 0.1 (0.0-0.2) X10*3/uL Abs Immat Gran (auto) 0.02 (0.00-0.03) X10*3/uL Absolute Neuts (auto) 7.5 (2.0-8.3) x10*3/uL Absolute Nucleated RBC 0.000 (0.0-0.012) X10*3/uL Nucleated RBC % (auto) 0.0 (0.0-0.2) /100WBC Sodium 139 (135-145) mmol/L Potassium 3.5 (3.3-5.1) mmol/L Chloride 103 (96-108) mmol/L Carbon Dioxide 22 (22-29) mmol/L Anion Gap 18 (12-20) BUN 10 (9-16) mg/dL Creatinine 0.71 (0.5-1.4) mg/dL Estim Creat Clear Calc 91.3 Estimated GFR > 60 Random Glucose 113 (60-115) mg/dL Calcium 9.6 (8.4-10.2) mg/dL Magnesium 1.7 (1.6-2.6) mg/dL Total Bilirubin 0.2 (0.0-1.0) mg/dL Direct Bilirubin < 0.2 (0.0-0.5) mg/dL AST 14 (5-31) U/L ALT 16 (0-31) U/L Alkaline Phosphatase 77 (39-117) U/L Troponin I High Sens < 2.7 (<3.5-17.0) ng/L Total Protein 7.8 (6.5-8.0) g/dL Albumin 4.4 (3.5-5.0) g/dL Amylase 45 (28-100) U/L Lipase 33 (8-78) U/L TSH 4.09 H (0.32-4.0) uIU/mL Free T4 0.88 (0.71-1.85) ng/dL Beta HCG, Quant < 2 mIU/mL Urine Color Yellow Urine Appearance Clear Urine pH 6.5 (5.0-9.0) Ur Specific [place] <= 1.005 (1.005-1.025) Urine Protein Negative (Neg-Trace) mg/dL Urine Glucose (UA) Negative (Negative) mg/dL Urine Ketones Negative (Negative) mg/dL Urine Blood Negative (Negative) Urine Nitrite Negative (Negative) Ur Leukocyte Esterase Negative (Negative) Influenza Type A (PCR) NEGATIVE (Negative) Influenza Type B (PCR) NEGATIVE (Negative) RSV RNA Qual (PCR) NEGATIVE (Negative) SARS-CoV-2 RNA (RT-PCR) NEGATIVE (Negative) Independent Interpretation I performed an independent interpretation of an: Ultrasound Interpretation: No significant abnormalities on right upper quadrant ultrasound Radiology Impression Discussion of test interpretation with radiology: I have reviewed the radiologist's reading. Radiologist Impression: US/US abdomen limited IMPRESSION: No significant abnormality seen status post cholecystectomy External Record Review External record reviewed: Inpatient record, Office record and Outpatient record Discharge Plan Discharge Clinical Impression: Viral illness, Abdominal pain Patient Disposition: Home, Self-Care Instructions: Abdominal Pain (ED), Viral Syndrome (ED) Additional Instructions: Please follow up with your primary care provider this week. Return to the emergency department if you develop chest pain, difficulty breathing, ongoing palpitations, persistent vomiting, severe headaches, new weakness, numbness, tingling, or any other concerning symptoms. Be sure to drink plenty of fluids and get adequate rest. Prescriptions: No Action spironolactone [Aldactone] 100 mg tablet 100 mg PO BID 90 Days Qty: 180 3RF sennosides [Senna Lax] 8.6 mg tablet 8.6 - 17.2 mg PO BEDTIME Qty: 60 6RF Rx Instructions: Take 1-2 capsules by mouth at bedtime Creon 3,000-9,500- 15,000 unit capsule,delayed release(DR/EC) 1 cap PO .QIDAC 90 Days Qty: 360 1RF Rx Instructions: Take one capsule by mouth 15-30 minutes before meals famotidine 40 mg tablet 40 mg PO BEDTIME 90 Days Qty: 90 1RF Print Language: Pakistani
--- NOTE | 2024-03-05 06:34 | MHC.EDTECH ---
Sars/Flu/RSV obtained and sent to lab.Patient ambulated to the bathroom with a steady gait,urine sample collected and sent to lab.
[2024-03-05] MEDS: 0.9 % Sodium Chloride 1,000 ML 999 ML IV (06:48)
[2024-03-05 06:52] LABS: Alanine Aminotransferase 16 U/L (0-31); Albumin Level 4.4 g/dL (3.5-5.0); Alkaline Phosphatase 77 U/L (39-117); Amylase 45 U/L (28-100); Aspartate Amino Transferase 14 U/L (5-31); Bilirubin Direct < 0.2 mg/dL (0.0-0.5); Bilirubin Total 0.2 mg/dL (0.0-1.0); Lipase 33 U/L (8-78); Total Protein 7.8 g/dL (6.5-8.0)
[2024-03-05 06:55] LABS: Appearance Urine Clear; Color Urine Yellow; Glucose Urine UA Negative (Negative); Leukocyte Esterase Urine Negative (Negative); Nitrite Urine Negative (Negative); PH 6.5 (5.0-9.0); Specific Gravity - Urine <= 1.005 (1.005-1.025); Urine Blood Negative (Negative); Urine Ketones Negative (Negative); Urine Protein Negative (Neg-Trace)
[2024-03-05 07:04] LABS: HCG Quantitative < 2 mIU/mL; TSH reflex Free T4 4.09 uIU/mL (0.32-4.0)
[2024-03-05 07:15] LABS: Influenza A PCR NEGATIVE (Negative); Influenza B PCR NEGATIVE (Negative); Resp Syncy Virus RNA Qual PCR NEGATIVE (Negative); SARS COV2 PCR INHOUSE NEGATIVE (Negative)
[2024-03-05 07:35] LABS: Free T4 (Free Thyroxine) 0.88 ng/dL (0.71-1.85)
--- NOTE | 2024-03-05 07:59 | ECG_ITS ---
Test Reason : palpatations Blood Pressure : / mmHG Vent. Rate : 113 BPM Atrial Rate : 113 BPM P-R Int : 160 ms QRS Dur : 092 ms QT Int : 308 ms P-R-T Axes : 067 017 042 degrees QTc Int : 422 ms Sinus tachycardia with Premature supraventricular complexes and with occasional Premature ventricular complexes Otherwise normal ECG When compared with ECG of 05-MAR-2024 04:42, Premature ventricular complexes are now Present ST no longer depressed in Inferior leads Nonspecific T wave abnormality, improved in Inferior leads Referred By: Flora Proctor Electronically Signed By:Ez Sahu
[2024-03-05 08:15] LABS: Magnesium 1.7 mg/dL (1.6-2.6)
[2024-03-05] MEDS: Ketorolac Tromethamine 15 MG/ML VIAL IVPUSH (08:47)
[2024-03-05 08:51] VITALS: BP 128/82; PULSE 107; RESP 16; TEMP 37.2; O2SAT 99
--- NOTE | 2024-03-05 11:07 | MHC.EDTECH ---
This tech assumed care for this patient at 11:00. Met with patient and introduced myself. At this time patient is resting comfortably. Call contreras given and reminded to use it if she needs anything.
[2024-03-05 11:38] VITALS: BP 129/72; PULSE 85; RESP 13; TEMP 36.9; O2SAT 100
== END 2024-03-05 11:40 | disposition home or self-care (01) ==
PROVIDERS: Registered Nurse Emergency; Emergency Provider Emergency Medicine; PCP Internal Medicine
DX: B34.9 Viral infection, unspecified (principal); R00.2 Palpitations; R11.0 Nausea; R10.2 Pelvic and perineal pain; R51.9 Headache, unspecified; R10.11 Right upper quadrant pain; Z03.818 Encounter for observation for suspected exposure to other biological agents ruled out; Z87.891 Personal history of nicotine dependence
CPT/HCPCS: 0241U; 36415; 76705; 80048; 80076; 81003; 82150; 83690; 83735; 84439; 84443; 84484; 84702; 85025; 93005; 96361; 96374; 99284; 99285; J1885

== ENCOUNTER → 2024-03-05 04:42 | Outpatient (BNV) | payer OTHER, SELFPAY | PROVIDERS: Emergency Provider Emergency Medicine; PCP Internal Medicine; Visit Provider Internal Medicine Cardiovascular Disease | DX: R00.2 Palpitations (principal) | CPT/HCPCS: 93010 ==

== ENCOUNTER 2024-03-06 07:50 | Outpatient (AMB) | payer OTHER, SELFPAY ==
--- NOTE | 2024-03-06 07:55 | MHC.PC.OV ---
Vital Signs 03/06/24 07:56 Height 5 ft Weight 174 lb BMI 34.0 BP 112/80 Blood Pressure Location Rt brachial Position Sitting Pulse 71 Pulse Source Pulse Oximeter Pulse Oximetry (%) 100 Oxygen Delivery Method Room Air Intake Visit Reasons: ER F/U Heart paplations Intake Note: Pt is here today for her [facility] ER f/u Allergies codeine Adverse Reaction (Intermediate, Verified 03/06/24 08:21) N/V - abd. pain Medication List - Last Reconciled 03/06/24 by Yee Rosas MD famotidine 40 mg PO BEDTIME 90 days [id number] 3,000-9,500- 15,000 unit (Creon) 1 cap PO .QIDAC 90 days sennosides (Senna Lax) 8.6 - 17.2 mg (1 - 2 x 8.6 mg) PO BEDTIME spironolactone (Aldactone) 100 mg PO BID 90 days Tobacco use date assessed: 03/06/24 Dental Screening Dental Screen Date: 03/06/24 Did you have a dental visit in the last 12 months?: Yes Did you have a dental problem in the last 6 months where you did not have access to dental care?: No Was dental information given to patient?: Patient has dentist HPI ER F/U Heart paplations HPI Details 48-year-old female with history of IBS, GERD, PCOS, alcohol use disorder, cholecystectomy after recent ER visit where she presented with 3 days of headaches, lightheadedness, chest pain, palpitations, fatigue, and diarrhea. At the ER, patient was awake, a febrile, alert oriented x3 but noted to be tachycardic,normal neurological exam without focal deficits. Initial EKG shows sinus tachycardia with premature supraventricular comlexes. Repeat EKG shows sinus tach with premature supraventricular complexes and occasional PVCs. Labs notable for no leukocytosis, no anemia, no electrolyte abnormalities, negative troponin, no evidence of RAMA, mildly elevated TSH with normal free T4. Urinalysis is without evidence of infection. Viral swabs negative. Ultrasound notable for no significant abnormalities. Her heart rate improved with fluids and pain medication in the ED, and felt that her symptoms were most likely due to a viral illness, and discharged home. Patient and states that they think it is from her drinking too much [place] coffee, drinks at least 3 cups daily together with [place], and every time she does she has palpitations. She has now switched to decaf coffee and feels better. No more episodes of palpitations , no diarrhea, normal bowel movements. [facility] Medical History GERD (gastroesophageal reflux disease) History of in vitro fertilization Left lateral knee pain PCOS (polycystic ovarian syndrome) Surgical History Hx of colonoscopy H/O esophagogastroduodenoscopy History of section History of cholecystectomy History of tubal ligation Family History Mother History of breast cancer Cervical cancer Family/Other History of breast cancer Social History Housing: House Alcohol intake: current Alcohol intake frequency: 0-2 drinks per day Alcohol type: beer Patient Tobacco Use Status: Former Tobacco user Quit Date: >20yrs ago e-Cigarette/Vaping Use: Never Used service: No Current occupational status: unemployed Sexual orientation: Straight/Heterosexual Gender identity: Female Cognitive needs: No Hearing needs: No Vision needs: Yes Questionnaire PHQ-9 Over the last 2 weeks, how often have you been bothered by any of the following problems? 1. Little interest or pleasure in doing things: not at all 2. Feeling down, depressed, or hopeless: several days 3. Trouble falling or staying asleep, or sleeping too much: several days 4. Feeling tired or having little energy: several days 5. Poor appetite or overeating: not at all 6. Feeling bad about yourself - or that you are a failure or have let yourself or your family down: not at all 7. Trouble concentrating on things, such as reading the newspaper or watching television: not at all 8. Moving or speaking so slowly that other people could have noticed. Or the opposite - being so fidgety or restless that you have been moving around a lot more than usual: not at all 9. Thoughts that you would be better off or of hurting yourself in some way: not at all Total score: 3 Depression Screening Interpretation: Negative Depression Screening Done: Yes 72937 - PHQ-9 Billing: Yes Source: Developed by Teresa Clarke Kurt Kroenke and colleagues, with an educational darron from [employer]. Thrive Questionnaire Date Thrive assessed: 03/06/24 I am a: Patient What is your living situation today?: I have a steady place to live Within the past 12 months, did the food you bought not last and you didn't have the money to get more?: Never true Within the past 12 months, did you worry whether your food would run out before you got money to buy more?: Never true Do you have trouble paying for medicines?: No Do you have trouble getting transportation to medical appointments?: No Do you have trouble paying your heating and electricity bill?: No Do you have trouble taking care of your child, family member or friend?: No Do you have trouble with day-to-day activities such as bathing, preparing meals, shopping, managing finances, etc.?: No Are you currently unemployed and looking for a job?: No Are you interested in more education?: No THRIVE Score: 0 AUDIT C Alcohol Use Questionnaire (AUDIT-C) 1. How often do you have a drink containing alcohol?: 2-3 times a week 2. How many drinks containing alcohol do you have on a typical day when you are drinking?: 3 or 4 3. How often do you have six or more drinks on one occasion?: Weekly Total Score: 7 WYATT-7 AMB Questionnaire WYATT-7 Date WYATT - 7 assessed: 03/06/24 Feeling nervous, anxious, or on edge: 1 = Several days Not being able to stop or control worryin = Not at all Worrying too much about different things: 1 = Several days Trouble relaxin = Not at all Being so restless that it is hard to sit still: 0 = Not at all Becoming easily annoyed or irritable: 0 = Not at all Feeling afraid as if something awful might happen: 0 = Not at all Total WYATT-7 score (0-4 normal; 5-9 mild; 10-14 moderate; 15-21 severe): 2 Source: Developed by Teresa Clarke Kurt Kroenke and colleagues, with an educational darron from [employer]. WYATT-7 Assessment Billing WYATT-7 Assessment Tool: WYATT-7 Assessment 69031 Review of Systems Const Reports no additional complaints ENT Reports no additional complaints Card Denies chest pain, Denies rapid heart rate, Denies irregular heart rhythm, Denies lightheadedness, Denies palpitations and Denies dyspnea Resp Reports no additional complaints and Denies dyspnea GI Reports no additional complaints Musc Reports no additional complaints Neuro Reports no additional complaints Endo Denies palpitations Physical exam (Primary Care) Vital Signs: Last Vital Signs Pulse 71 03/06/24 07:56 BP 112/80 03/06/24 07:56 Pulse Ox 100 03/06/24 07:56 Oxygen Delivery Method Room Air 03/06/24 07:56 BMI result Body Mass Index 34.0 Tobacco/Smoking Status: Tobacco use Status Tobacco use date assessed 03/06/24 03/06/24 08:00 Patient Tobacco Use Status Former Tobacco user 03/06/24 07:56 e-Cigarette/Vaping Use Never Used 03/06/24 07:56 PHQ-9: PHQ-9 Score PHQ-9: Total score 3 03/06/24 08:20 Depression Screening Interpretation: Negative Thrive Assessment: Date of Thrive Assessment Date Thrive assessed 03/06/24 03/06/24 08:20 Const General: no acute distress and alert Nutritional Appearance: obese Orientation/consciousness: patient oriented x3 HENMT Ears: external ears normal and EAC's normal General nose exam: Normal external nose present Face and sinus: Yes normal facial exam and Yes face symmetric Mouth: moist mucous membranes Eyes General: appearance normal, both eyes and all related structures Neck Neck: Yes full ROM, Yes no lymphadenopathy, Yes no meningeal signs and Yes supple Thyroid: Thyroid normal Resp Effort & Inspection: normal respiratory effort and able to speak in complete sentences Auscultation: clear to auscultation bilaterally Cardio Rate: regular rate Rhythm: regular rhythm Heart sounds: S1 normal heart sound present and S2 normal heart sound present GI Inspection: Yes obesity Palpation (GI): Soft to palpation, nontender and no guarding Auscultation: normal bowel sounds Neuro General: patient oriented x3, gait normal, moves all extremities, no meningeal signs, no focal motor deficits and CN's II-XI intact bilaterally Extrem Other: No gross bone deformity, slight tenderness on palpation over lateral aspect of left knee General: Yes full ROM, Yes no joint enlargement and Yes no pedal edema Assessment and Plan Assessment & Plan (1) History of palpitations: Code(s): Z87.898 - Personal history of other specified conditions Plan: Reviewed labs an EKG from ER which were unremarkable except for episodes of sinus tachycardia with PVCs, at present patient is asymptomatic with pulse and blood pressure now within normal limits [place] likely due to excessive caffeine intake. Patient has now switched to decaf coffee, currently asymptomatic Coding Level of Care Code Est Pt Level 4 (07548) Diagnoses History of palpitations Z87.898 Additional Codes WYATT-7 Assessment Billing - WYATT-7 Assessment Tool: WYATT-7 Assessment [id number] ([id number])
[2024-03-06 07:56] VITALS: BP 112/80; PULSE 71; O2SAT 100; BMI 34.0
== END 2024-03-06 09:50 | disposition home or self-care (01) ==
PROVIDERS: PCP Internal Medicine; Visit Provider Internal Medicine
DX: Z87.898 Personal history of other specified conditions (principal)
CPT/HCPCS: 99214

== ENCOUNTER 2024-06-11 12:50 | Outpatient (AMB) | payer OTHER, SELFPAY ==
--- NOTE | 2024-06-11 12:52 | A.OFFVIS_ITS ---
Vital Signs 06/11/24 13:07 Height 5 ft Weight 175 lb 14.862 oz BMI 34.4 BP 124/73 Blood Pressure Location Lt brachial Position Sitting Pulse 83 Intake Visit Reasons: 6 months follow up Intake Note: Patient presents to the office today for a 6 month follow up. CC: Patient reports doing well and denies having any GI symptoms today. Clinical Research Scientist Required: No Accompanied by: Spouse Allergies codeine Adverse Reaction (Intermediate, Verified 06/11/24 13:11) N/V - abd. pain HPI HPI 6 months follow up: Details: Assessment & Plan (1) IBS (irritable bowel syndrome): Code(s): K58.9 - Irritable bowel syndrome without diarrhea Plan: Maur[place]ian # She continues to do very well.She continues on her Creon and senna with good control of her bowels and she is pleased with the famotidine for her occasional heartburn.? Return office visit in 6 months (2) GERD (gastroesophageal reflux disease): Code(s): K21.9 - Gastro-esophageal reflux disease without esophagitis Medications: Refilled sennosides (Senna Lax) Take 1-2 capsules by mouth at bedtime 8.6 - 17.2 mg (1 - 2 x 8.6 mg) PO BEDTIME 60 tabs 6RF constipation rvkmuq-xwzqjxsv-mtifmna 3,000-9,500- 15,000 unit (Creon) Take one capsule by mouth 15-30 minutes before meals 1 cap PO .QIDAC 90 days 360 caps 1RF sennosides (Senna Lax) Take 1-2 capsules by mouth at bedtime 8.6 - 17.2 mg (1 - 2 x 8.6 mg) PO BEDTIME 60 tabs 6RF constipation TODAY'S VISIT Mauritanian # translates per pt request She continues to do very well.She continues on her Creon and senna with good control of her bowels and she is pleased with the famotidine. ROV 6 mos. [facility] Medical History GERD (gastroesophageal reflux disease) History of in vitro fertilization Left lateral knee pain PCOS (polycystic ovarian syndrome) Surgical History Hx of colonoscopy H/O esophagogastroduodenoscopy History of section History of cholecystectomy History of tubal ligation Family History Mother History of breast cancer Cervical cancer Family/Other History of breast cancer Social History Housing: House Alcohol intake: current Alcohol intake frequency: 0-2 drinks per day Alcohol type: beer Patient Tobacco Use Status: Former Tobacco user e-Cigarette/Vaping Use: Never Used service: No Current occupational status: unemployed Sexual orientation: Straight/Heterosexual Gender identity: Female Cognitive needs: No Hearing needs: No Vision needs: Yes Review of Systems Const Denies fatigue, Denies fever(s), Denies night sweats, Denies poor appetite and Denies weight loss ENT Reports Normal hearing present, Denies dental pain, Denies dysphagia, Denies hearing loss, Denies mouth pain, Denies odynophagia, Denies throat swelling, Denies tongue swelling and Reports other (Dentition adequate) Card Reports no additional complaints Resp Reports no additional complaints GI Details: Denies abdominal pain, Denies melena, Reports bloating, Denies hematochezia, Reports constipation, Denies GI cramping, Denies dysphagia, Denies excessive flatus, Denies early satiety, Reports heartburn, Denies diarrhea, Denies nausea, Denies odynophagia, Denies vomiting and Denies hematemesis Skin/Breast Denies pruritus, Denies lesions, Denies rash and Denies jaundice Neuro Reports Normal hearing present and Denies Abnormal speech present Endo Denies fatigue Aller/Immun Denies throat swelling and Denies tongue swelling Physical Exam Vital Signs: Last Vital Signs Pulse 83 06/11/24 13:07 BP 124/73 06/11/24 13:07 BMI result Body Mass Index 34.4 Const General: cooperative, no acute distress, well developed and well groomed Nutritional Appearance: well nourished and obese Orientation/consciousness: oriented to person, oriented to place and oriented to time Limitations: language barrier HEENT Head: Yes normocephalic and Yes atraumatic Eyes General: appearance normal, both eyes and all related structures Pupils: Equal, round and reactive pupils present Neck Neck: Yes normal visual inspection and Yes no lymphadenopathy Thyroid: Thyroid normal Resp Effort & Inspection: normal respiratory effort and able to speak in complete sentences Auscultation: clear to auscultation bilaterally Cardio Rate: regular rate Rhythm: regular rhythm Heart sounds: Normal, physiologic split S2 sound present Peripheral pulses: radial pulses present and posterior tibial pulses present GI Inspection: No distended, No Abdominal panniculus present and Yes obesity Palpation (GI): Soft to palpation, nontender, no guarding, not rigid and No hepatosplenomegaly present Percussion: Yes normal to percussion Auscultation: normal bowel sounds Rectal Exam - Female: deferred Skin General skin exam: no rashes or lesions noted, turgor normal, skin not dry, no jaundice, No spider nevi and no striae Rashes: no rashes Nails: normal Neuro General: oriented to person, oriented to place and oriented to time Cranial nerves: Yes Equal, round and reactive pupils present and Yes Normal hearing present Speech: No Abnormal speech present Extrem General: Yes normal to inspection, No clubbing, No cyanosis and No edema Psych Appearance: grossly normal and well kempt Mental Status: mental status grossly normal Speech and movement: Normal speech and movement present Affect: normal affect Attitude: cooperative Thought process: Normal thought process present and not confabulating Thought content: Normal thought content present Insight: Fair insight present (Psych) Judgement: Fair judgement present (Psych) Assessment & Plan Assessment & Plan (1) GERD (gastroesophageal reflux disease): Code(s): K21.9 - Gastro-esophageal reflux disease without esophagitis Category: Medical Qualifiers: Esophagitis presence: without esophagitis Qualified Code(s): K21.9 - Gastro-esophageal reflux disease without esophagitis (2) IBS (irritable bowel syndrome): Comment: Followed by [facility] GI currently on Creon Code(s): K58.9 - Irritable bowel syndrome without diarrhea Category: Medical Plan Mauritanian # translates per pt request She continues to do very well.She continues on her Creon and senna with good control of her bowels and she is pleased with the famotidine. ROV 6 mos. Medications: Refilled sennosides (Senna Lax) Take 1-2 capsules by mouth at bedtime 8.6 - 17.2 mg (1 - 2 x 8.6 mg) PO BEDTIME 60 tabs 6RF constipation nlzvzi-zggvpraz-ybvpzra 3,000-9,500- 15,000 unit (Creon) Take one capsule by mouth 15-30 minutes before meals 1 cap PO .QIDAC 360 caps 1RF 90 days famotidine 40 mg PO BEDTIME 90 tabs 1RF 90 days K21.9 - Gastro-esophageal reflux disease without esophagitis Coding Level of Care Code Est Pt Level 3 (53041) Diagnoses Gastroesophageal reflux disease without esophagitis K21.9 Esophagitis presence: without esophagitis IBS (irritable bowel syndrome) K58.9
[2024-06-11 13:07] VITALS: BP 124/73; PULSE 83; BMI 34.4
== END 2024-06-11 13:41 | disposition home or self-care (01) ==
PROVIDERS: PCP Internal Medicine; Referring Provider Internal Medicine; Visit Provider Nurse Practitioner
DX: K21.9 Gastro-esophageal reflux disease without esophagitis (principal); K58.9 Irritable bowel syndrome, unspecified
CPT/HCPCS: 99213

== ENCOUNTER → 2024-06-11 12:50 | Outpatient (BNVA) | payer OTHER, SELFPAY | PROVIDERS: PCP Internal Medicine; Visit Provider Nurse Practitioner | DX: K58.9 Irritable bowel syndrome, unspecified (principal); K21.9 Gastro-esophageal reflux disease without esophagitis; Z79.899 Other long term (current) drug therapy | CPT/HCPCS: 99212 ==

== ENCOUNTER 2024-06-17 13:03 | Outpatient (AMB) | payer OTHER, SELFPAY ==
--- NOTE | 2024-06-17 13:09 | A.OFFVIS_ITS ---
Vital Signs 06/17/24 13:11 Height 5 ft Weight 177 lb BMI 34.6 BP 110/74 Intake Visit Reasons: OPERATIONS SUPPORT MANAGER annual exam Toxics Program Officer: Toxics Program Officer Present (Lorna) Accompanied by: Spouse Allergies codeine Adverse Reaction (Intermediate, Verified 06/17/24 13:11) N/V - abd. pain Is last menstrual period known: Yes Last menstrual period: 05/31/24 HPI Comments Details: She is a premenopausal woman presenting for annual examination. Accompanied by her . Doing well with no concerns. She tries to eat healthy and stays active with exercise-walking. Regular monthly menses. Currently is sexually active. She denies vaginal itching and irritation. Denies family history of breast, ovarian or colon cancer. Last pap smear 2021, negative. Mammogram: 2022. [facility] Medical History GERD (gastroesophageal reflux disease) History of in vitro fertilization Left lateral knee pain PCOS (polycystic ovarian syndrome) Surgical History Hx of colonoscopy H/O esophagogastroduodenoscopy History of section History of cholecystectomy History of tubal ligation Family History Mother History of breast cancer Cervical cancer Family/Other History of breast cancer Social History Housing: House Alcohol intake: current Alcohol intake frequency: 0-2 drinks per day Alcohol type: beer Patient Tobacco Use Status: Former Tobacco user e-Cigarette/Vaping Use: Never Used service: No Current occupational status: unemployed Sexual orientation: Straight/Heterosexual Gender identity: Female Cognitive needs: No Hearing needs: No Vision needs: Yes Female Reproductive History Menstrual Duration of menses: 3-5 days Date of last menstrual period: 05/31/24 control method: permanent sterilization Permanent Sterilization: BTL Total pregnancies: 2 Full term: 1 Premature: 1 Number of Living Children: 4 Multiple births: 1 (Triplets) Date of last pap smear: 03/28/22 (neg pap and hpv) Date of Mammogram: 10/17/23 (Birad 1) Review of Systems Const All systems reviewed & are unremarkable except as noted in HPI and below Reports as per HPI Eyes Reports no additional complaints ENT Reports no additional complaints Card Reports no additional complaints Resp Reports no additional complaints GI Reports as per HPI and Reports no additional complaints Reports as per HPI Musc Reports no additional complaints Skin/Breast Reports as per HPI Neuro Reports no additional complaints Psych Reports no additional complaints Endo Reports no additional complaints Dex/Lymph Reports no additional complaints Aller/Immun Reports no additional complaints Physical Exam Vital Signs: Last Vital Signs BP 110/74 06/17/24 13:11 BMI result Body Mass Index 34.6 Const General: cooperative, healthy appearing, no acute distress, well developed and alert Orientation/consciousness: patient oriented x3 HEENT Head: Yes normal to inspection Eyes General: appearance normal, both eyes and all related structures Neck Neck: Yes normal visual inspection Thyroid: Thyroid normal Chest Chest palpation & inspection: normal inspection of the chest and other (no puckering, dimpling, peau de orange, retraction, discharge, masses) Breast/axilla inspection: normal inspection of the breasts Breast/axilla palpation: normal palpation of the breasts Resp Effort & Inspection: normal respiratory effort GI Inspection: Yes normal to inspection and Yes scar Palpation (GI): Soft to palpation Rectal Exam - Female: deferred General: Yes bladder normal to palpation External Female Exam: normal external appearance and normal appearance of the urethra Speculum Exam - Vagina: normal appearance of the vagina, normal palpation and normal vaginal discharge Speculum Exam - Cervix: normal appearance of the cervix and normal palpation Bimanual exam- vagina & uterus: normal bimanual exam, normal palpation, uterine size normal, bladder normal to palpation, normal palpation and non-tender Bimanual Exam- Adnexa, other: no masses Skin General skin exam: no rashes or lesions noted Rashes: no rashes Neuro General: patient oriented x3 Cognition (Neuro): normal cognition Extrem General: Yes normal to inspection Psych Attitude: cooperative Thought process: Normal thought process present Assessment & Plan Assessment & Plan (1) Encounter for well woman exam with routine gynecological exam: Code(s): Z01.419 - Encounter for gynecological examination (general) (routine) without abnormal findings Category: Medical Plan Discussed: Current recommendations for pap smears per ASCCP guidelines. Breast awareness and periodic breast exams. Maintain a healthy lifestyle including a well balanced diet and routine exercise. Mammogram yearly. Perimenopause. Monitor menstrual cycles, report any unscheduled bleeding, bleeding episodes <24 days apart or heavy/prolonged menstrual bleeding. Call the office for a follow up for any concerns. Patient verbalizes understanding and agrees to the plan of care. She was given opportunity to ask questions and all questions were answered to the best of my ability. RTO in one year for annual nursing surgical services director examination. This note is constructed using voice recognition software. While every effort has been made to ensure accuracy, assistant tennis coach errors may have been included. Coding Level of Care Code Est Pt Prev Care 40-64y(61376) Diagnoses Encounter for well woman exam with routine gynecological exam Z01.419
[2024-06-17 13:11] VITALS: BP 110/74; BMI 34.6
== END 2024-06-17 13:55 | disposition home or self-care (01) ==
LOC: HO.HWS 13:03
PROVIDERS: PCP Internal Medicine; Visit Provider Advanced Practice Midwife
DX: Z01.419 Encounter for gynecological examination (general) (routine) without abnormal findings (principal)
CPT/HCPCS: 99396

== ENCOUNTER → 2024-06-17 13:03 | Outpatient (BNVA) | payer OTHER, SELFPAY | PROVIDERS: PCP Internal Medicine; Visit Provider Advanced Practice Midwife ==

== ENCOUNTER 2024-09-02 09:39 | Outpatient (REF) | payer OTHER, SELFPAY ==
[2024-09-02 13:58] LABS: Alanine Aminotransferase 22 U/L (0-31); Anion Gap 12 (12-20); Aspartate Amino Transferase 23 U/L (5-31); Blood Urea Nitrogen 13 mg/dL (9-16); Calcium 9.7 mg/dL (8.4-10.2); Carbon Dioxide 26 mmol/L (22-29); Chloride 102 mmol/L (96-108); Cholesterol 164 mg/dL (<200); Estimated Glomerular Filt Rate > 60; Glucose Fasting 88 mg/dL (60-99); HDL Cholesterol 58 mg/dL (>40); LDL Cholesterol Calculated 90 mg/dL (<100); Potassium 3.8 mmol/L (3.3-5.1); Sodium 136 mmol/L (135-145); Triglycerides 81 mg/dL (<150)
== END 2024-09-02 09:40 | disposition home or self-care (01) ==
LOC: HO.HMGCLDS 09:39
PROVIDERS: PCP Internal Medicine; Visit Provider Nurse Practitioner Family
DX: E28.2 Polycystic ovarian syndrome (principal); Z13.220 Encounter for screening for lipoid disorders; Z13.1 Encounter for screening for diabetes mellitus; E66.9 Obesity, unspecified
CPT/HCPCS: 36415; 80048; 80061; 84450; 84460; 96127

== ENCOUNTER 2024-09-02 09:39 | Outpatient (AMB) | payer OTHER, SELFPAY ==
[2024-09-02 09:41] VITALS: BP 128/76; PULSE 78; O2SAT 98; BMI 34.6
--- NOTE | 2024-09-02 09:41 | A.OFFPC_ITS ---
Vital Signs 09/02/24 09:41 Height 5 ft Weight 177 lb BMI 34.6 BP 128/76 Blood Pressure Location Rt brachial Position Sitting Pulse 78 Pulse Source Pulse Oximeter Pulse Oximetry (%) 98 Intake Visit Reasons: PE Intake Note: pt is here for PE Boat Captain Required: No Accompanied by: Self / Same As Patient Allergies codeine Adverse Reaction (Intermediate, Verified 09/02/24 09:41) N/V - abd. pain Medication List - Last Reconciled 09/02/24 by Bere Anderson NP famotidine 40 mg PO BEDTIME 90 days tpkzps-btkeljlb-xmzsaul 3,000-9,500- 15,000 unit (Creon) 1 cap PO .QIDAC 90 days oxycodone 5 mg PO DAILY PRN sennosides (Senna Lax) 8.6 - 17.2 mg (1 - 2 x 8.6 mg) PO BEDTIME spironolactone (Aldactone) 100 mg PO BID 90 days Tobacco use date assessed: 03/10/24 Dental Screening Dental Screen Date: 03/06/24 HPI HPI Comments History of Present Illness Details 49 y/o female patient who presents to [facility] for PE. Patient of Dr. Rosas. Pt c/o chronic left knee pain due to OA. Had PT in the past with minimal relief. [facility]: Mammo: 09/2023 BI-RADS Negative PAP: 03/2022 NILM Neg HPV Colonoscopy: 09/2022 [facility] Medical History GERD (gastroesophageal reflux disease) History of in vitro fertilization Left lateral knee pain PCOS (polycystic ovarian syndrome) Surgical History Hx of colonoscopy H/O esophagogastroduodenoscopy History of section History of cholecystectomy History of tubal ligation Family History Mother History of breast cancer Cervical cancer Family/Other History of breast cancer Social History Housing: House Alcohol intake: current Alcohol intake frequency: 0-2 drinks per day Alcohol type: beer Patient Tobacco Use Status: Former Tobacco user e-Cigarette/Vaping Use: Never Used service: No Current occupational status: unemployed Sexual orientation: Straight/Heterosexual Gender identity: Female Cognitive needs: No Hearing needs: No Vision needs: Yes Questionnaire PHQ-9 Over the last 2 weeks, how often have you been bothered by any of the following problems? 1. Little interest or pleasure in doing things: not at all 2. Feeling down, depressed, or hopeless: not at all 3. Trouble falling or staying asleep, or sleeping too much: not at all 4. Feeling tired or having little energy: not at all 5. Poor appetite or overeating: not at all 6. Feeling bad about yourself - or that you are a failure or have let yourself or your family down: not at all 7. Trouble concentrating on things, such as reading the newspaper or watching television: not at all 8. Moving or speaking so slowly that other people could have noticed. Or the opposite - being so fidgety or restless that you have been moving around a lot more than usual: not at all 9. Thoughts that you would be better off or of hurting yourself in some way: not at all Total score: 0 Depression Screening Interpretation: Negative Depression Screening Done: Yes 57036 - PHQ-9 Billing: Yes Source: Developed by Drs. Clif Bullard, Teresa Pinto, Usman Singh and colleagues, with an educational darron from [employer]. Thrive Questionnaire Date Thrive assessed: 09/02/24 I am a: Patient What is your living situation today?: I have a steady place to live Within the past 12 months, did the food you bought not last and you didn't have the money to get more?: I choose not to answer this question Within the past 12 months, did you worry whether your food would run out before you got money to buy more?: I choose not to answer this question Do you have trouble paying for medicines?: No Do you have trouble getting transportation to medical appointments?: No Do you have trouble paying your heating and electricity bill?: No Do you have trouble taking care of your child, family member or friend?: No Do you have trouble with day-to-day activities such as bathing, preparing meals, shopping, managing finances, etc.?: No Are you currently unemployed and looking for a job?: I choose not to answer this question Are you interested in more education?: I choose not to answer this question Please select the resources that you would like help with: None Currently or been in a relationship where the following occur: No concerns reported THRIVE Score: 0 AUDIT C Alcohol Use Questionnaire (AUDIT-C) 1. How often do you have a drink containing alcohol?: 2-3 times a week 2. How many drinks containing alcohol do you have on a typical day when you are drinking?: 3 or 4 3. How often do you have six or more drinks on one occasion?: Weekly Total Score: 7 Score Reviewed/Action Taken: Yes WYATT-7 AMB Questionnaire WYATT-7 Date WYATT - 7 assessed: 09/02/24 Feeling nervous, anxious, or on edge: 1 = Several days Not being able to stop or control worryin = Not at all Worrying too much about different things: 1 = Several days Trouble relaxin = Not at all Being so restless that it is hard to sit still: 0 = Not at all Becoming easily annoyed or irritable: 0 = Not at all Feeling afraid as if something awful might happen: 0 = Not at all Total WYATT-7 score (0-4 normal; 5-9 mild; 10-14 moderate; 15-21 severe): 2 Source: Developed by Drs. Clif Bullard, Teresa Pinto, Usman Singh and colleagues, with an educational darron from [employer]. WYATT-7 Assessment Billing WYATT-7 Assessment Tool: WYATT-7 Assessment 80953 Review of Systems Const All systems reviewed & are unremarkable except as noted in HPI and below Physical exam (Primary Care) Vital Signs: Last Vital Signs Pulse 78 09/02/24 09:41 BP 128/76 09/02/24 09:41 Pulse Ox 98 09/02/24 09:41 BMI result Body Mass Index 34.6 Tobacco/Smoking Status: Tobacco use Status Tobacco use date assessed 03/10/24 09/02/24 09:42 Patient Tobacco Use Status Former Tobacco user 09/02/24 09:42 e-Cigarette/Vaping Use Never Used 09/02/24 09:42 PHQ-9: PHQ-9 Score PHQ-9: Total score 0 09/02/24 10:31 Depression Screening Interpretation: Negative Thrive Assessment: Date of Thrive Assessment Date Thrive assessed 09/02/24 09/02/24 09:42 Currently or been in a relationship where the following occur: No concerns reported Const General: cooperative, comfortable and no acute distress Orientation/consciousness: patient oriented x3 HENMT Head: Yes normocephalic Ears: external ears normal and TM's normal bilaterally General nose exam: Normal external nose present Face and sinus: Yes sinuses nontender Mouth: moist mucous membranes Throat: Yes tonsils normal and Yes uvula midline Eyes Pupils: Equal, round and reactive pupils present EOM: EOMs intact bilaterally Direct Ophthalmoscopy: normal light reflex Neck Neck: Yes full ROM and Yes no lymphadenopathy Resp Effort & Inspection: normal respiratory effort Auscultation: clear to auscultation bilaterally, no crackles, no rales, no rhonchi and no wheezes Cardio Heart sounds: S1 normal heart sound present and S2 normal heart sound present GI Inspection: Yes Abdominal panniculus present and Yes obesity Palpation (GI): Soft to palpation, not firm, nontender, no guarding and not rigid Percussion: Yes normal to percussion Auscultation: normal bowel sounds Rectal Exam - Female: deferred General: Yes no CVA tenderness Back/Spine/Pelvis Back: no CVA tenderness Skin General skin exam: no rashes or lesions noted Neuro General: patient oriented x3, gait normal and moves all extremities Cranial nerves: Yes Equal, round and reactive pupils present Motor exam (neuro): 5/5 motor strength present throughout Extrem General: Yes full ROM and Yes capillary refill normal Right lower extremity: full ROM and knee Details: normal to inspection, tenderness Location: of the patella and of the tibial tuberosity and normal ROM; no swelling Left lower extremity: normal to inspection Psych Speech and movement: Normal speech and movement present Coding Level of Care Code Est Pt Prev Care 40-64y(32789) Diagnoses Gastroesophageal reflux disease without esophagitis K21.9 Esophagitis presence: without esophagitis Other irritable bowel syndrome K58.8 Irritable bowel syndrome type: other Encounter for routine adult health examination without abnormal findings Z00.00 Primary osteoarthritis of left knee M17.12 Additional Codes WYATT-7 Assessment Billing - WYATT-7 Assessment Tool: WYATT-7 Assessment 96399 ([id number]) PHQ-9 - 87049 - PHQ-9 Billing: Yes ([id number]) Time Spent (min) 20 Assessment & Plan Assessment & Plan (1) GERD (gastroesophageal reflux disease): Code(s): K21.9 - Gastro-esophageal reflux disease without esophagitis Category: Medical Qualifiers: Esophagitis presence: without esophagitis Qualified Code(s): K21.9 - Gastro-esophageal reflux disease without esophagitis Plan: Managed by GI (2) IBS (irritable bowel syndrome): Comment: Followed by [facility] [place] GI currently on Creon Code(s): K58.9 - Irritable bowel syndrome, unspecified Category: Medical Qualifiers: Irritable bowel syndrome type: other Qualified Code(s): K58.8 - Other irritable bowel syndrome Plan: Managed by GI (3) Encounter for routine adult health examination without abnormal findings: Code(s): Z00.00 - Encounter for general adult medical examination without abnormal findings Plan: Left knee OA, tenderness. (4) Primary osteoarthritis of left knee: Code(s): M17.12 - Unilateral primary osteoarthritis, left knee Plan: Provided [employer]ee [employer]ace Declined PT today. Acetaminophen for pain relief. IceHot Orders: Orders Lipid Panel Today Z00.00 - Encounter for general adult medical examination without abnormal findings
== END 2024-09-02 11:03 | disposition home or self-care (01) ==
LOC: HO.HMCC 09:39
PROVIDERS: PCP Internal Medicine; Visit Provider Nurse Practitioner Family
DX: K21.9 Gastro-esophageal reflux disease without esophagitis (principal); K58.8 Other irritable bowel syndrome; Z00.00 Encounter for general adult medical examination without abnormal findings; M17.12 Unilateral primary osteoarthritis, left knee

== ENCOUNTER 2025-02-11 13:28 | Outpatient (AMB) | payer OTHER, SELFPAY ==
--- NOTE | 2025-02-11 13:36 | MHC.OFFVIS ---
Vital Signs 02/11/25 13:37 Height 5 ft Weight 179 lb 14.355 oz BMI 35.1 BP 134/75 Blood Pressure Location Lt brachial Position Sitting Pulse 77 Intake Visit Reasons: follow up 8 months Intake Note: Elma presents in office today in follow up of GERD. CC: Patient reports doing well and denies having any new GI symptoms or concerns today. 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 pain HPI HPI follow up 8 months: Details: Assessment & Plan (1) GERD (gastroesophageal reflux disease): Code(s): K21.9 - Gastro-esophageal reflux disease without esophagitis Category: Medical Qualifiers: Esophagitis presence: without esophagitis Qualified Code(s): K21.9 - Gastro-esophageal reflux disease without esophagitis (2) IBS (irritable bowel syndrome): Comment: Followed by [facility] [place] [facility] currently on Creon Code(s): K58.9 - Irritable bowel syndrome without diarrhea Category: Medical Plan Nigerien # translates per pt request She continues to do very well.She continues on her Creon and senna with good control of her bowels and she is pleased with the famotidine. ROV 6 mos. Medications: Refilled sennosides (Senna Lax) Take 1-2 capsules by mouth at bedtime 8.6 - 17.2 mg (1 - 2 x 8.6 mg) PO BEDTIME 60 tabs 6RF constipation xlfxuv-bpuortnb-bsfrlin 3,000-9,500- 15,000 unit (Creon) Take one capsule by mouth 15-30 minutes before meals 1 cap PO .QIDAC 360 caps 1RF 90 days famotidine 40 mg PO BEDTIME 90 tabs 1RF 90 days K21.9 - Gastro-esophageal reflux disease without esophagitis TODAY'S VISIT Nigerien # translates per pt request She continues to do well on her GI regimen. She continues on her Creon and senna and famotidine. Not due for repeat colonoscopy until 2026. ROV 6 mos. (they love the salad bar in cafeteria!). COUNT INCLUDES THE [facility] Medical History GERD (gastroesophageal reflux disease) History of in vitro fertilization Left lateral knee pain PCOS (polycystic ovarian syndrome) Surgical History (Updated 02/11/25 @ 14:09 by VAZQUEZ Boland) Hx of colonoscopy H/O esophagogastroduodenoscopy History of section History of cholecystectomy History of tubal ligation Family History Mother History of breast cancer Cervical cancer Family/Other History of breast cancer Social History Housing: House Alcohol intake: current Alcohol intake frequency: 0-2 drinks per day Alcohol type: beer Patient Tobacco Use Status: Former Tobacco user e-Cigarette/Vaping Use: Never Used service: No Current occupational status: unemployed Sexual orientation: Straight/Heterosexual Gender identity: Female Cognitive needs: No Hearing needs: No Vision needs: Yes Review of Systems Const Denies fatigue, Denies fever(s), Denies night sweats, Denies poor appetite and Denies weight loss Eyes Details: glasses Reports requires corrective lenses ENT Reports Normal hearing present, Denies dental pain, Denies dysphagia, Denies hearing loss, Denies mouth pain, Denies odynophagia, Denies throat swelling, Denies tongue swelling and Reports other (Dentition adequate) Card Reports no additional complaints Resp Reports no additional complaints GI Details: Denies abdominal pain, Denies melena, Denies bloating, Denies hematochezia, Reports constipation, Denies GI cramping, Denies dysphagia, Denies excessive flatus, Denies early satiety, Reports heartburn, Denies diarrhea, Denies nausea, Denies odynophagia, Denies vomiting and Denies hematemesis Skin/Breast Denies pruritus, Denies lesions, Denies rash and Denies jaundice Neuro Reports Normal hearing present and Denies Abnormal speech present Endo Denies fatigue Aller/Immun Denies throat swelling and Denies tongue swelling Physical Exam Vital Signs: Last Vital Signs Pulse 77 02/11/25 13:37 BP 134/75 02/11/25 13:37 BMI result Body Mass Index 35.1 Const General: cooperative, no acute distress, well developed and well groomed Nutritional Appearance: well nourished and obese Orientation/consciousness: oriented to person, oriented to place and oriented to time Limitations: language barrier HEENT Head: Yes normocephalic and Yes atraumatic Eyes General: appearance normal, both eyes and all related structures Pupils: Equal, round and reactive pupils present Neck Neck: Yes normal visual inspection and Yes no lymphadenopathy Thyroid: Thyroid normal Resp Effort & Inspection: normal respiratory effort and able to speak in complete sentences Auscultation: clear to auscultation bilaterally Cardio Rate: regular rate Rhythm: regular rhythm Heart sounds: Normal, physiologic split S2 sound present Peripheral pulses: radial pulses present and posterior tibial pulses present GI Inspection: No distended, Yes Abdominal panniculus present and Yes obesity Palpation (GI): Soft to palpation, nontender, no guarding, not rigid and No hepatosplenomegaly present Percussion: Yes normal to percussion Auscultation: normal bowel sounds Rectal Exam - Female: deferred Skin General skin exam: no rashes or lesions noted, turgor normal, skin not dry, no jaundice, No spider nevi and no striae Rashes: no rashes Nails: normal Neuro General: oriented to person, oriented to place and oriented to time Cranial nerves: Yes Equal, round and reactive pupils present and Yes Normal hearing present Speech: No Abnormal speech present Extrem General: Yes normal to inspection, No clubbing, No cyanosis and No edema Psych Appearance: grossly normal and well kempt Mental Status: mental status grossly normal Speech and movement: Normal speech and movement present Affect: normal affect Attitude: cooperative Thought process: Normal thought process present and not confabulating Thought content: Normal thought content present Insight: Fair insight present (Psych) Judgement: Fair judgement present (Psych) Assessment & Plan Assessment & Plan (1) IBS (irritable bowel syndrome): Comment: Followed by [facility] [place] GI currently on Creon Code(s): K58.9 - Irritable bowel syndrome, unspecified Category: Medical Qualifiers: Irritable bowel syndrome type: other Qualified Code(s): K58.8 - Other irritable bowel syndrome (2) GERD (gastroesophageal reflux disease): Code(s): K21.9 - Gastro-esophageal reflux disease without esophagitis Category: Medical Qualifiers: Esophagitis presence: without esophagitis Qualified Code(s): K21.9 - Gastro-esophageal reflux disease without esophagitis Plan Nigerien # translates per pt request She continues to do well on her GI regimen. She continues on her Creon and senna and famotidine. Not due for repeat colonoscopy until 2026. ROV 6 mos. (they love the salad bar in cafeteria!). Medications: Refilled famotidine 40 mg PO BEDTIME 90 tabs 1RF 90 days K21.9 - Gastro-esophageal reflux disease without esophagitis zktjwm-flzucjhh-bqutrlq 3,000-9,500- 15,000 unit (Creon) Take one capsule by mouth 15-30 minutes before meals 1 cap PO .QIDAC 360 caps 1RF 90 days sennosides (Senna Lax) Take 1-2 capsules by mouth at bedtime 8.6 - 17.2 mg (1 - 2 x 8.6 mg) PO BEDTIME 60 tabs 6RF constipation Coding Level of Care Code Est Pt Level 3 (67935) Diagnoses Other irritable bowel syndrome K58.8 Irritable bowel syndrome type: other Gastroesophageal reflux disease without esophagitis K21.9 Esophagitis presence: without esophagitis
[2025-02-11 13:37] VITALS: BP 134/75; PULSE 77; BMI 35.1
--- OUTSIDE RECORDS SUMMARY | 2025-02-11 16:32 | XMS_ITS | Continuity of Care Document ---
Author Name [facility] Organization [facility] Care Team Providers Care Cotton Ball Bagger Name Role Phone [facility] Unavailable Unavailable Problems Combined list of problems from Department of Defense and Veterans Affairs facilities. It does not include entries that were removed or entered in error. Problem Status Onset Date Problem Type Date of Resolution Comments Source Diagnosis: ICD-10-CM Z71.0 Prsn encntr hlth serv to consult on behalf of another person Active Diagnosis [facility] [place] [facility] Immunizations Combined list of available immunizations from the Department of Defense and Veterans Affairs facilities. Immunization Series Date Given Administered By Site Reaction Lot Number CVX Code Drug Fisher Hand Line Status Comments Source COVID-19 ([employer]), VECTOR-NR, [id number], PF, 0.5 ML 1 2020 212 complet ed JSN; [id number]; [place] [facility] [place] [facility] Encounters Combined list of: 1) Encounters from Department of Veterans Affairs facilities going backup to the last 18 months, not all VA inpatient encounters are included; 2) Encounters from the Department of Defense facilities going backup to 280 months. Location Location Details Encounter Type Encounter Number Reason For Visit Attending Provider ADM Date DC Date Status Disposition Source [place] [facility] [place] [facility] HC PRO PHONE CALL 5-10 MIN [id number] Diagnos is: ICD-10- CM Z71.0 Prsn encntr hlth serv to consult on behalf of another person SUSAN YI 04/17 [facility] [place] [place] [facility] [place] [facility] CASE MANAGEMENT [id number] Diagnos is: ICD-10- CM Z71.0 Prsn encntr hlth serv to consult on behalf of another person SHANAE NOEL SE 04/27 [facility] [place] [facility] Outpatient Encounter [id number] 05/06 [place] [facility] [facility]
--- OUTSIDE RECORDS SUMMARY | 2025-02-11 16:32 | XMS_ITS | Encounter Summary ---
Author Name [facility] Address [address] [place] [id number] Support Name Relationship Address Phone UNK, UNK Emergency Contact Unknown Unavailabl e Selected Encounter This section includes the information on record at [place] for the Encounter. Date/Time Encounter Type Encounter Description Reason Provider Source Apr 27, 2024 10:33 AM CASE MANAGEMENT CAREGIVER SUPPORT PROGRAM ICD-10-CM Z71.0 Prsn encntr hlth serv to consult on behalf of another person DIOGENES NOEL Encounter Template Text not used by [place] Assessments - Encounter Diagnoses This section includes the primary and secondary diagnoses documented for the Encounter. Date/Time Primary/Secondary Diagnosis Diagnosis Name Provider Source Apr 27, 2024 04:18 PM PRIMARY Prsn encntr hlth serv to consult on behalf of another person DIOGENES NOEL [facility] Encounter Notes: All associated encounter notes This section contains the clinical notes associated to the Encounter. Date/Time Encounter Note(s) Provider Source Apr 27, 2024 10:33 AM CAREGIVER CERTIFIC ATE: LOCAL TITLE: CSP PCA CAREGIVER ASSESSMENT STANDARD TITLE: CAREGIVER CERTIFICATE DATE OF NOTE: APR 27, 2024@10:33 ENTRY DATE: APR 27, 2024@10:33:58 AUTHOR: DIOGENES NOEL EXP COSIGNER: URGENCY: STATUS: COMPLETED Program of Comprehensive Assistance for Family Caregivers Caregiver Assessment As part of the Program of Comprehensive Assistance for Family Caregivers, Family Caregiver/applicant(s) complete an assessment during the application and/or reassessment process. The caregiver assessment is conducted to obtain information at it relates to the needs of the caregiver. Caregiver Support Program (CSP) staff provide information on available resources and answer questions related to the program. Date of Assessment: Apr Identify the caregiver using Full Name and one of the other sims identifiers Full Name: LETY SANCHEZ Full SSN: [id number] Date of : [birth year] Address: [address] [place], [place] [address] Phone number: PATIENT PHONE - The caregiver assessment is being conducted as part of the: Application Process Method of Contact: Video Telehealth Caregiver Contact Details: Best contact number for backup/emergency communication: PATIENT PHONE - cell: Caregiver Location/Surroundings During Visit: Caregiver location during visit Home [address] [place], [place] [address] Others present for visit with caregiver's consent: Name: no Patient confirms location is safe and private for visit. Telehealth Disclosure: Visit conducted by synchronous telehealth. Caregiver verbal consent obtained. Location/emergency number confirmed. Environment surveyed and all participants identified. Virtual conference room locked. Type of Family Caregiver/applicant: Primary Family Caregiver/applicant [place] being cared for: Titi Sanchez CAREGIVER INFORMATION Caregiver/applicant is at least 18 years of age or older: Yes Caregiver/applicant is a family member of the [place] or caregiver lives time analysis clerk with the [place] or will agree to do so if designated as a Family Caregiver: Yes Relationship to [place]: Spouse Caregiver's Insurance Status: Ac Comment: 's benefit CAREGIVER RESPONSIBILITIES Employment - Not applicable Comment: no School: Not Applicable Comment: no Caregiver for Others: Child/children Comment: yes Volunteer Work: No CAREGIVER HISTORY Caregiver reports past caregiving experience. 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 Caregiver reports receiving/attending caregiver training/education. Details: Yes, see above. Length of time caregiver reports caring for the : Longer than 5 years Comment: longer than 5 years due to PTSD. Provisions in place to assist the [place] at home: None Caregiver's report of how a typical day is spent: I get things done at home. I run errands with my husand in the afternoon. I watch some T.V. I go to the pool if it's hot outside. Sometimes, we'll go out to eat and sometimes we'l go to the movies. Ways in which caregiver role affects the caregiver's everyday life: It doesn't affect me. Caregiver's description of their social support system: and kids. Caregiver reports use of the following self-care strategies: Go for walks. Go for rides. Caregiver reports he/she does not receive regular assistance in providing care to the [place]. The Caregiver denies use or receipt of any supportive services or programs. Caregiver reports needing the following additional knowledge and/or support: Open to reviewing supports offered via the CSP Program like [employer] [place], Whole Health Coaching, Caregivers [employer], Malika Medina. Furniture Assembler And Installer to forward resources. CAREGIVER ASSESSMENT The Caregiver has not experienced any recent changes in his/her physical or mental health. The Caregiver does not have any concerns about his/her physical or emotional health. The Caregiver reports no current or past physical or mental health conditions that would adversely affect his/her ability to provide personal care services. Clinical observations: Caregiver appears to be very dedicated to caring for [place] and the household. Caregiver did not appear to be in acute physical or emotional distress. Caregiver has a strong support network and appropriate coping tools that effectively help manage stress. Caregiver reports being in good health and denied limitations that would impact her ability to care for [place]. According to the Zarit Arma Interview, Caregiver has low caregiver burden. PHQ-9 A PHQ-9 screen was performed. The score was 0 which is suggestive of no depression. 1. Little interest or pleasure in doing things Not at all 2. Feeling down, depressed, or hopeless Not at all 3. Trouble falling or staying asleep, or sleeping too much Not at all 4. Feeling tired or having little energy Not at all 5. Poor appetite or overeating Not at all 6. Feeling bad about yourself or that you are a failure or have let yourself or your family down Not at all 7. Trouble concentrating on things, such as reading the newspaper or watching television Not at all 8. Moving or speaking so slowly that other people could have noticed. Or the opposite being so fidgety or restless that you have been moving around a lot more than usual Not at all 9. Thoughts that you would be better off or of hurting yourself in some way Not at all 10. If you checked off any problems, how DIFFICULT have these problems made it for you to do your work, take care of things at home or get along with other people? Not difficult at all [place] Suicide Severity Rating Scale (C-SSRS) screener 1. Over the past month, have you wished you were or wished you could go to sleep and not wake up? No 2. Over the past month, have you had any actual thoughts of killing yourself? No 3. Over the past month, have you been thinking about how you might do this? Response not required due to responses to other questions. 4. Over the past month, have you had these thoughts and had some intention of acting on them? Response not required due to responses to other questions. 5. Over the past month, have you started to work out or worked out the details of how to kill yourself? Response not required due to responses to other questions. 6. If yes, at any time in the past month did you intend to carry out this plan? Response not required due to responses to other questions. 7. In your lifetime, have you ever done anything, started to do anything, or prepared to do anything to end your life (for example, collected pills, obtained a gun, gave away valuables, went to the roof but didn't jump)? No 8. If YES, was this within the past 3 months? Response not required due to responses to other questions. Zarit Arma Interview Zarit Arma Interview (Caregiver burden scale), copyright 1990 by Quinten Rice and Lora Rice, with permission to use. ZBI Screening score (range 0-16): Score is 8, which reflects high caregiver burden (scores of 8 or greater). 1. Do you feel that because of the time you spend with your relative that you do not have enough time for yourself? Quite frequently 2. Do you feel stressed between caring for your relative and trying to meet other responsibilities (work/family)? Quite frequently 3. Do you feel strained when you are around your relative? Sometimes 4. Do you feel uncertain about what to do about your relative? Never The Caregiver reports that there are no current or past concerns regarding IPV domestic violence or safety. Comment: no The caregiver reports currently feeling safe in their home. The Caregiver reports the following current legal concerns: Assistance with living will The following legal services are needed: Advance Directives Power of Membership Manager The Caregiver does not report any current personal financial planning concerns. The following financial services are needed: None Caregiver strengths and coping skills: Hard worker and organized. Caregiver challenges and stressors: When he gets irritable, I'm always afraid that he's going to get into fight that's why I am always with him. Interventions/Plan (referrals, resources, education, etc.): - Caregiver provided with National Caregiver support and resources. - Caregiver directed to the national CSP website for additional resources and supports. Summary: See above clinical observations. Caregiver was open, honest, and transparent during the comprehensive assessment. Caregiver is very dedicated to supporting and caring for [place]. Furniture Assembler And Installer will remain available to support as needed and throughout [facility] application process. Furniture Assembler And Installer to submit ANTONIA and vielka caregiver [facility] resources. /onel/ SERINA BELTRAN UTILIZATION SUPERVISOR Signed: 04/27/2024 16:18 DIOGENES NOEL [place] [facility]
== END 2025-02-11 14:11 | disposition home or self-care (01) ==
LOC: HO.HGI 13:29
PROVIDERS: PCP Internal Medicine; Visit Provider Nurse Practitioner
DX: K58.8 Other irritable bowel syndrome (principal); K21.9 Gastro-esophageal reflux disease without esophagitis
CPT/HCPCS: 99213

== ENCOUNTER → 2025-02-11 13:28 | Outpatient (BNVA) | payer OTHER, SELFPAY | PROVIDERS: PCP Internal Medicine; Visit Provider Nurse Practitioner | DX: K21.9 Gastro-esophageal reflux disease without esophagitis (principal); K58.8 Other irritable bowel syndrome | CPT/HCPCS: 99212 ==

== ENCOUNTER 2025-04-08 11:31 | Outpatient (REF) | payer OTHER, SELFPAY ==
--- NOTE | ~2025-04-08 | XR_ITS ---
EXAMINATION: XR SHOULDER, LEFT CLINICAL INFORMATION: Left shoulder pain. COMPARISON: None available. TECHNIQUE: AP, scapular Y, Grashey view of the left shoulder. FINDINGS: The AC joint is intact and not degenerated. Glenohumeral joint is not dislocated or degenerated. There is a focal teardrop shaped calcific density just cephalad to the greater tuberosity. XR/XR shoulder LT min 2V IMPRESSION: Small focal calcification just cephalad to greater tuberosity suggests changes from calcific tendinitis involving rotator cuff. Electronically signed by: Ger Urias MD 04/08/2025 02:28 PM EDT
--- NOTE | ~2025-04-08 | XR_ITS ---
EXAMINATION: XR CERVICAL SPINE CLINICAL INFORMATION: Radiculopathy, cervical region. COMPARISON: None available. TECHNIQUE: 6 views of the cervical spine, inclusive of flexion and extension views, were obtained. FINDINGS: There is straightening of the cervical lordosis. There is no prevertebral soft tissue swelling. C5-6 to measures mild disc space narrowing with small endplate osteophytes that mildly narrow the left greater than right neural foramen. XR/XR cervical spine 4V IMPRESSION: There is straightening of the expected cervical lordosis. This can be idiopathic, but can also be related to degenerative change, muscle spasm, or posterior soft tissue injury. C5-6 degenerative disc disease with mild bony foraminal narrowing. Electronically signed by: Ger Urias MD 04/08/2025 02:31 PM EDT
== END 2025-04-08 11:32 | disposition home or self-care (01) ==
LOC: HO.HMGCX 11:31
PROVIDERS: PCP Internal Medicine; Visit Provider Physician Assistant
DX: M25.512 Pain in left shoulder (principal); M54.12 Radiculopathy, cervical region
CPT/HCPCS: 72050; 73030; 99212

== ENCOUNTER 2025-04-08 11:31 | Outpatient (AMB) | payer OTHER, SELFPAY ==
--- NOTE | 2025-04-08 12:03 | AM.OFFWIN_ITS ---
Intake Vital Signs 04/08/25 12:04 Weight 179 lb BP 120/74 Blood Pressure Location Rt brachial Position Sitting Pulse 97 Pulse Source Pulse Oximeter Pulse Oximetry (%) 98 Oxygen Delivery Method Room Air Intake Visit Reasons: EP-lt side of neck, shoulder, arm, lower pain Intake Note: Patient here for neck pain that radiates down the left arm and lower pain that has been present for over 1 week. Denies any known injuries. Patient Tobacco Use Status: Former Tobacco user Allergies codeine Adverse Reaction (Intermediate, Verified 04/08/25 12:05) N/V - abd. pain Do you need a note to return to daycare/school/sports/work: No HPI HPI Comments History of Present Illness Details History of Present Illness - The patient is a 49-year-old female pr esenting with left shoulder pain. - The shoulder pain began a week ago wit hout any known injury or inciting event. - The pain is severe and persistent, not alleviated by mnfe-fjk-[id number] medications such as Tylenol or topical treatments like Bengay. - The pain is exacerbated by movement, i ncluding lifting the arm overhead or performing rotational movements. - There is associated stiffness and tigh tness in the neck and upper back region. - No numbness, tingling, or weakness in the arm, although there is tenderness in the biceps region. She states it feels like nerve pain . Physical ExamGeneral: Cooperative, healthy appearing, comfortable, no acute distress and well developed Orientation: Patient oriented x3 Limitations: Limited range of motion in the left shoulder due to pain Head: Normal to inspection Ears: Hearing grossly normal bilaterally Nose: Normal External nose present Face and sinus: Tenderness noted in the facial area Eyes: Appearance normal, both eyes and all related structures Neck: Normal visual inspection, full ROM Respiratory: Normal respiratory effort and able to speak in complete sentences. Skin: No rashes or lesions noted Back/spine: No TTP cervical, thoracic or lumbar spine, tightness in left trapezius and TTP from left trap into cervical paraspinous muscles. Neuro: Patient oriented x3 Extremities: Tenderness in the left shoulder and biceps area, + empty can test, + lift off, full ROM with pain. [facility] Medical History (Updated 04/08/25 @ 12:37 by Meagan Contreras PA-C) GERD (gastroesophageal reflux disease) History of in vitro fertilization Left lateral knee pain PCOS (polycystic ovarian syndrome) Surgical History (Updated 02/11/25 @ 14:09 by VAZQUEZ Boland) Hx of colonoscopy H/O esophagogastroduodenoscopy History of section History of cholecystectomy History of tubal ligation Family History Mother History of breast cancer Cervical cancer Family/Other History of breast cancer Social History Housing: House Alcohol intake: current Alcohol intake frequency: 0-2 drinks per day Alcohol type: beer Patient Tobacco Use Status: Former Tobacco user e-Cigarette/Vaping Use: Never Used service: No Current occupational status: unemployed Sexual orientation: Straight/Heterosexual Gender identity: Female Cognitive needs: No Hearing needs: No Vision needs: Yes Review of Systems Const All systems reviewed & are unremarkable except as noted in HPI and below Physical Exam Vital Signs: Last Vital Signs Pulse 97 04/08/25 12:04 BP 120/74 04/08/25 12:04 Pulse Ox 98 04/08/25 12:04 Oxygen Delivery Method Room Air 04/08/25 12:04 Assessment & Plan Assessment & Plan (1) Left shoulder pain: Code(s): M25.512 - Pain in left shoulder Qualifiers: Chronicity: acute Qualified Code(s): M25.512 - Pain in left shoulder Plan: Plan - Order x-rays of the cervical spine and left shoulder to rule out any structural abnormalities. - Prescribe diclofenac, a prescription NSAID, to reduce inflammation and manage pain. - Prescribe cyclobenzaprine, a muscle relaxant, to alleviate muscle tension and discomfort. - Fit the patient with a shoulder sling to provide support and reduce strain on the shoulder. - Follow up with the patient after reviewing x-ray results to determine further management steps. Patient was informed and verbally consented to the use of an ambient scribe for clinic note documentation during this visit. (2) Cervical neuropathic pain: Code(s): M54.12 - Radiculopathy, cervical region Plan: as above Orders: Orders XR shoulder LT min 2V Today M25.512 - Pain in left shoulder, M54.12 - Radiculopathy, cervical region XR cervical spine 5V Today M25.512 - Pain in left shoulder, M54.12 - Radiculopathy, cervical region Medications: New diclofenac sodium 50 mg PO Q12H PRN 20 tabs 0RF pain cyclobenzaprine 5 mg PO Q8H PRN 20 tabs 0RF Muscle Spasm Coding Level of Care Code Est Pt Level 4 (93634) Diagnoses Acute pain of left shoulder M25.512 Chronicity: acute Cervical neuropathic pain M54.12
[2025-04-08 12:04] VITALS: BP 120/74; PULSE 97; O2SAT 98
--- OUTSIDE RECORDS SUMMARY | 2025-04-08 13:40 | XMS_ITS | Encounter Summary ---
Author Organization [employer] [facility] Address [address] [place] [address] Care Team Providers Care Java Web Engineer Name Role Phone Unavailable Primary Care Provider Unavailabl e Encounter Details Date Type Department Care Team (Late st Contact Info) Description 03/28/2023 Abstract [facility] ADULT DENTAL [address] [place] [address] Eden Baker [address] [place] [address] Social History Tobacco Use Types Packs/Day Years Used Date Smoking Tobacco: Never Passive Smoke Exposure: Never Smokeless Tobacco: Never Alcohol Use Standard Drinks/Week Comments Yes 12 (1 standard drink = 0.6 oz pu re alcohol) Comments Unknown Sex and Gender Information Value Date Recorded Sex Assigned at Female 08/27/2022 10:26 AM EDT Legal Sex Female 10:26 AM EDT Gender Identity Female 10/10/2022 10:04 AM EST Sexual Orientation Choose not to disclose 2021 10:26 AM EDT COVID-19 Exposure Response Date Recorded In the last 10 days, have yo u been in contact with someone who was confirmed or suspected to have Coronavirus/COVID-19? No / Unsure 03/20/2023 10:42 AM EDT documented as of this encounter Plan of Treatment Upcoming Encounters Date Type Department Care Team (Late st Contact Info) Description 08/11/2025 11:00 AM EDT Office Visit [facility] ADULT [facility] [address] [place] [address] Josr Bakeraris [address] [place] [address] documented as of this encounter Visit Diagnoses Not on filedocumented in this encounter
== END 2025-04-08 12:56 | disposition home or self-care (01) ==
PROVIDERS: PCP Internal Medicine; Visit Provider Physician Assistant
DX: M25.512 Pain in left shoulder (principal); M54.12 Radiculopathy, cervical region

== ENCOUNTER → 2025-04-08 13:03 | Outpatient (BNV) | payer OTHER, SELFPAY | PROVIDERS: PCP Internal Medicine; Visit Provider Radiology Diagnostic Radiology | DX: M50.322 Other cervical disc degeneration at C5-C6 level (principal); M61.412 Other calcification of muscle, left shoulder | CPT/HCPCS: 72050; 73030 ==

== ENCOUNTER 2025-06-16 13:51 | Outpatient (AMB) | payer OTHER, SELFPAY ==
[2025-06-16 13:56] VITALS: BP 122/72; PULSE 82; TEMP 36.6; O2SAT 97; BMI 35.2
--- NOTE | 2025-06-16 13:56 | MHC.OFFWIV ---
Intake Vital Signs 06/16/25 13:56 Height 5 ft Weight 180 lb BMI 35.2 BP 122/72 Blood Pressure Location Lt brachial Position Sitting Pulse 82 Pulse Source Pulse Oximeter Temp 97.9 F Temp Source Oral Pulse Oximetry (%) 97 Intake Visit Reasons: EP-lower back pain Intake Note: pt is here for c/o lower back pain, denies injury, denies urinary issues, states it radiates from buttocks to legs Patient Tobacco Use Status: Former Tobacco user Allergies codeine Adverse Reaction (Intermediate, Verified 06/16/25 14:00) N/V - abd. pain Do you need a note to return to daycare/school/sports/work: No HPI HPI Comments History of Present Illness Details She presents with her husabnd for pain in back Ongoing x 3 weeks No falls or trauma States chronic lower back pain but usually not radiating into legs Ongoing midline back into L hip and upper leg Now radiating on R side too Pain sometimes goes from 3-10 in pain level Sitting makes it Worsens with walking Normal owel movements and urination; no incontinence No dysuria or hematuria No fever or chills No abdominal pain, CP or SOB Now it is a 3/10 Has tried Tylenol and topical gel without relief PFSH Medical History (Updated 06/16/25 @ 14:23 by Enedina Newell PA-C) GERD (gastroesophageal reflux disease) History of in vitro fertilization Left lateral knee pain PCOS (polycystic ovarian syndrome) Surgical History (Updated 02/11/25 @ 14:09 by VAZQUEZ Boland) Hx of colonoscopy H/O esophagogastroduodenoscopy History of section History of cholecystectomy History of tubal ligation Family History Mother History of breast cancer Cervical cancer Family/Other History of breast cancer Social History Housing: House Alcohol intake: current Alcohol intake frequency: 0-2 drinks per day Alcohol type: beer Patient Tobacco Use Status: Former Tobacco user e-Cigarette/Vaping Use: Never Used service: No Current occupational status: unemployed Sexual orientation: Straight/Heterosexual Gender identity: Female Cognitive needs: No Hearing needs: No Vision needs: Yes Review of Systems Const Denies chills, Denies fever(s), Denies frequent falls and Denies headache(s) ENT Denies headache(s) Card Denies chest pain and Denies dyspnea Resp Denies dyspnea GI Denies abdominal pain Denies hematuria, Denies dysuria, Denies urinary incontinence and Denies urinary urgency Musc Reports back pain, Denies numbness, Reports radiating pain into limb and Denies tingling Skin/Breast Denies rash Neuro Denies frequent falls, Denies headache(s), Denies numbness and Denies tingling Physical Exam Exam Exam: General: Non-toxic, NAD. Speaking full sentences. Skin: Warm dry throughout. No posterior back or flank ecchymosis or vesicular lesions. No lower extremity edema Eye: EOMI Respiratory: CTA bilaterally. No wheezes, rales or rhonchi Cardiac: RRR. No murmur. No calf tenderness bilaterally MSK: Minimal midline lumbar ttp. + bilateraly lumbar paraspinous ttp. Negative SLR sitting bilaterally. 5/5 strength dorsal/plantar flexion feet. Neurology: Alert. No aphasia or facial droop. Psych: Good mood and affect Vital Signs: Last Vital Signs Temp 97.9 F 06/16/25 13:56 Pulse 82 06/16/25 13:56 BP 122/72 06/16/25 13:56 Pulse Ox 97 06/16/25 13:56 BMI result Body Mass Index 35.2 Assessment & Plan Assessment & Plan (1) Lumbar back pain: Code(s): M54.50 - Low back pain, unspecified Plan: Patient seen and evaluated. Pt requesting lumbar spine: resulted interpreted by myself as minimal osteoarthritis and + retrololithesis of L4 She has pain but no other nerve symptoms ER protocol for spine impingement or worsening symptoms discussed with pt and her Muscle relaxant; lethargy, no alcohol or driving Patient and gave verbal understanding and had no additional questions or concerns at time of discharge All questions answered Orders: Orders XR lumbar spine 2-3V Today M54.50 - Low back pain, unspecified Medications: New methocarbamol 750 mg PO TID 14 tabs 0RF Coding Level of Care Code Est Pt Level 3 (95789) Diagnoses Lumbar back pain M54.50
--- OUTSIDE RECORDS SUMMARY | 2025-06-16 14:46 | XMS_ITS | Encounter Summary ---
Author Organization [employer] [facility] Address [address] [place] [address] Care Team Providers Care Independent Agent Music Education Name Role Phone Unavailable Primary Care Provider Unavailabl e Encounter Details Date Type Department Care Team (Late st Contact Info) Description 03/28/2023 Abstract [facility] ADULT DENTAL [address] [place] [address] Eden Baker [address] [place] [address] Social History Tobacco Use Types Packs/Day Years [...] Description 08/11/2025 11:00 AM EDT Office Visit [facility]ULT [facility] [address] [place] [address] Josr Bakeraris [address] [place] [address] documented as of this encounter Visit Diagnoses Not on filedocumented in this encounter
== END 2025-06-16 15:21 | disposition home or self-care (01) ==
PROVIDERS: PCP Internal Medicine; Visit Provider Physician Assistant
DX: M54.50 Low back pain, unspecified (principal)

== ENCOUNTER 2025-06-16 13:51 | Outpatient (REF) | payer OTHER, SELFPAY ==
--- NOTE | ~2025-06-16 | XR_ITS ---
EXAMINATION: XR LUMBOSACRAL SPINE CLINICAL INFORMATION: M54.50 - Low back pain, unspecified COMPARISON: None available. TECHNIQUE: Three views of the lumbosacral spine. FINDINGS: No significant scoliosis. There is a normal lordosis. There is transitional lumbosacral anatomy, with a partially sacralized L5 vertebral body. There is no fracture, compression deformity, or suspicious bone lesion. There is a 6 mm degenerative appearing anterolisthesis of L3 upon L4. 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 There are are degenerative facet changes spanning L3-S1. Soft tissues demonstrate cholecystectomy clips and tubal ligation clips present. XR/XR lumbar spine 2-3V IMPRESSION: 1. No acute bony abnormalities of the lumbar spine. 2. Transitional lumbosacral anatomy as detailed. If intervention is considered, confirmation of levels is recommended. 3. Mild to moderate lumbar spondylosis as detailed. Electronically signed by: Prabhu Hua MD 06/16/2025 03:33 PM EDT
== END 2025-06-16 13:52 | disposition home or self-care (01) ==
LOC: HO.HMGCX 13:51
PROVIDERS: PCP Internal Medicine; Visit Provider Physician Assistant
DX: M47.896 Other spondylosis, lumbar region (principal); M43.16 Spondylolisthesis, lumbar region; M54.50 Low back pain, unspecified
CPT/HCPCS: 72100; 99212

== ENCOUNTER → 2025-06-16 14:28 | Outpatient (BNV) | payer OTHER, SELFPAY | PROVIDERS: PCP Internal Medicine; Visit Provider Radiology Diagnostic Radiology | DX: M47.816 Spondylosis without myelopathy or radiculopathy, lumbar region (principal) | CPT/HCPCS: 72100 ==

== ENCOUNTER 2025-07-13 13:00 | Outpatient (RCR) | payer OTHER, SELFPAY ==
--- NOTE | 2025-06-11 13:51 | MHC.PT.EP ---
[facility] [place] Office [place] Office [place] Office [address] Linda Booth [address] [phone] F: [phone] F: [phone] F: [phone] F: [phone] Physical Therapy Plan of Care Date of Evaluation: 06/11/25 Date of Surgery: Diagnosis: This is a 49 yo female presenting to skilled PT with a script for radiculopathy, cervical and L shoulder pain Assessment: This is a 49 yo female presenting to skilled PT with a script for radiculopathy, cervical and L shoulder pain. Patient reporting ongoing symptoms now for about a month. Pain started insidiously but she does think she was carrying something heavy the day before. Pain is pretty constant. Pain increases with movement, ADLs and housework (intact but needs increased time). Pain improves with rest, icy hot and tylenol. Pain is throughout the c-spine, L UT, L shoulder and down the UE to the thumb and pointer finger. Pain is described as cramping. She reports that she has always had neck pain but the arm symptoms are newer. She is to see ortho Dr. Razo on 08/26 for an initial consult. Assessment reveals pain that ranges from up to a 5/10 at the worst. Patient demos decreased L shoulder and cervical ROM, strength of L shoulder and scapular stabilizers, TTP at and impaired posture with forward head and rounded shoulders. Based on functional limitations, impaired QOL and pain tolerance patient is a good candidate for skilled PT 2x/wk for 4wks. Frequency and Duration: The patient will be seen 2x/wk for 4wks Short Term Goals: (in 2 wks) I in HEP Improve cervical ROM by at least 25% Demo proper cervical positioning with progression of UB strengthening exercises without cues from PT Pt will centralize symptoms Assisted Goals: (in 4 wks) Report 75% improvement in QOL Tolerate sleeping through the night without waking from pain Improve NDI and SPADI by 10 points Improve pain to no more than 2/10 at the worst Treatment Plan: Modalities to reduce pain, spasms and effusion. Manual therapy to restore motion and function. Therapeutic exercise to improve strength and flexibility. Neuromuscular re-education for posture and balance. Therapeutic activities to return to functional activities of daily living. Electronically signed by: Alyssa Lopez PT Please sign and return to therapist. Thank you for your referral.
--- NOTE | 2025-07-30 12:19 | MHC.PT.DC ---
[facility] [place] Office [place] Office [place] Office [address] [phone] F: [phone] F: [phone] F: [phone] F: [phone] Physical Therapy Discharge Report Diagnosis: This is a 49 yo female presenting to skilled PT with a script for radiculopathy, cervical and L shoulder pain Date of Surgery: Date of Evaluation: 06/11/25 Date of Discharge: 07/30/25 Treatments to Date: 5 Cancellations to Date: 0 No Shows to Date: 0 Discharge Status: Patient Elected to Stop Recommend MD Follow-up Discharge Summary: 07/13: Patient has come to 5 weeks of PT. She reports pain is the same and she would like to hold PT and wait to see what MD wants to do next. AROM shoulder flexion 160, abduction 140, ER 60, IR 50. AROM cervical flexion 35, extension 30, rotation R 60, rotation L 65, lateral flexion R 20, lateral flexion L 20. MMT shoulder flexion 4, abduction 4-, ER 4-, IR 4. Refer back to MD at this time, educated to continue nonpainful HEP in the mean time. Electronically signed by: Alyssa Lopez PT Please sign and return to therapist. Thank you for your referral.
== END 2025-07-30 12:20 | disposition home or self-care (01) ==
LOC: HO.PTCHIC 13:00
PROVIDERS: PCP Internal Medicine; Visit Provider Physician Assistant
DX: M25.512 Pain in left shoulder (principal); M54.12 Radiculopathy, cervical region
CPT/HCPCS: 97110; 97140; 97162

== ENCOUNTER 2025-08-11 14:27 | Outpatient (REF) | payer OTHER, SELFPAY ==
[2025-08-12 12:12] LABS: Chlamydia pneumoniae PCR Not Detected (Not Detect.); Coronavirus 229E PCR Not Detected (Not Detect.); Coronavirus HKU1 PCR Not Detected (Not Detect.); Coronavirus NL63 PCR Not Detected (Not Detect.); Coronavirus OC43 PCR Not Detected (Not Detect.); RSV PCR Not Detected (Not Detect.); Rhino/Enterovirus PCR Not Detected (Not Detect.)
[2025-08-12 12:14] LABS: Influenza A H1 PCR Not Detected (Not Detect.); Influenza A H1-2009 PCR Not Detected (Not Detect.); Influenza A H3 PCR Not Detected (Not Detect.); SARS-CoV-2 PCR Not Detected (Not Detect.)
== END 2025-08-11 14:28 | disposition home or self-care (01) ==
LOC: HO.LNP 14:27
PROVIDERS: PCP Internal Medicine; Visit Provider Physician Assistant Medical
DX: J06.9 Acute upper respiratory infection, unspecified (principal)
CPT/HCPCS: 87633; 99212

== ENCOUNTER 2025-08-11 14:27 | Outpatient (AMB) | payer OTHER, SELFPAY ==
--- OUTSIDE RECORDS SUMMARY | 2025-08-11 11:00 | XMS_ITS | Encounter Summary ---
Author Organization [employer] [facility] Address [address] [place] [address] Care Team Providers Care Retail Aide Name Role Phone Unavailable Primary Care Provider Unavailabl e Reason for Visit * Reason Comments Routine Cleaning Dental Exam x-rays perio chart Encounter Details Date Type Department Care Team (Latest Contact Info) Description 08/11/2025 11:00 AM EDT Office Visit [facility] ADULT DENTAL [address] [place] [address] Eden Baker [address] [place] [address] Stage 3 grade B localized periodontitis per [...] 1105 (X-rays, P. exam, prophy,perio chart) Location: [facility] Tooth: Maxilla and Mandible Procedure: Exam, X-rays, Prophylaxis, and Perio chart Verified the above with patient, reference assistant, and provider. Confirmed via patient's chart, intraorally and by radiographs. Special Delivery Messenger: not applicable Medical Hx: Vitals: Blood pressure [...] molars.. Dr. Bynum recommend Pt sees a basketball assembler MARIA L. A genericreferral was given to patient to bring to her chosen basketball assembler. Pt states she has commercial dental insurance. Pt needs to call her dental insurance to get a list of basketball assembler who take her insurance. She needs to call periodontists from that list and choose one to make the appoint. No more prophy appoints until she gets periodontal TX at specialist. Oral hygiene instructions provided to patient including brushing technique and flossing. Recommendations: [place] two times daily, modified lopez technique, Floss daily, Electric toothbrush, Soft bristle toothbrush, [place] Tongue, Anti-sensitivity toothpaste, Listerine. Recall Frequency: NONE NV: Pt to find periodontists and stay with them until all Periodontal TX is completed and basketball assembler let her know that it is ok [...] 1105 (X-rays, P. exam, prophy,perio chart) Location: [facility] Tooth: Maxilla and Mandible Procedure: Exam, X-rays, and Prophylaxis Verified the above with patient, reference assistant, and provider. Confirmed via patient's chart, intraorally and by radiographs. Special Delivery Messenger: not applicable Chief Complaint Patient presents with [...] Cancer Risk: Low Risk Oral Hygiene Instructions: [place] two times daily, modified lopez technique, Floss daily, Electric toothbrush, Soft bristle toothbrush, [place] Tongue Caries Risk Assessment: Low- no risk factor Assessment/Plan NORMAN: Exhibits pockets up to 8 mm on molars.. I recommend Pt sees a basketball assembler MARIA L. A generic referral was given to patient to bring to her chosen basketball assembler. Pt states she has commercial dental insurance. Pt needs to call her dental insurance to get a list of basketball assembler who take her insurance. She needs to call periodontists from that list and choose one to make the appoint. No more prophyappoints until she gets periodontal TX at specialist. X rays were done for P. Exam purposes. Prophy: completed by Samuel Lee RDH Patient tolerated procedure well, all questions answered and expressed understanding. Dismissed in good condition. NV: NONE for now. Pourer Bull Ladle: Eden Baker RDH Dentist: Alvarado Bynum DDS [...] route every 6 hours prn pain Creon [id number] units capsule famotidine (Pepcid) 40 MG tablet [...]
[2025-08-11 14:54] VITALS: BP 112/80; PULSE 79; TEMP 36.9; O2SAT 99; BMI 35.2
--- NOTE | 2025-08-11 14:54 | AM.OFFWIN_ITS ---
Intake Vital Signs 08/11/25 14:54 Height 5 ft Weight 180 lb BMI 35.2 BP 112/80 Blood Pressure Location Lt brachial Position Sitting Pulse 79 Pulse Source Pulse Oximeter Temp 98.4 F Temp Source Oral Pulse Oximetry (%) 99 Oxygen Delivery Method Room Air Intake Visit Reasons: EP-sore throat, cough, body pain Intake Note: pt presents with sore throat with swollen tonsils, body aches and lethargic Patient Tobacco Use Status: Former Tobacco user Allergies codeine Adverse Reaction (Intermediate, Verified 08/11/25 15:00) N/V - abd. pain Do you need a note to return to daycare/school/sports/work: No HPI HPI Comments History of Present Illness Details History - The patient is a 50-year-old female pr esenting with a sore throat. - She experienced choking on saliva and difficulty breathing last night, leading to a sore throat. - Her tonsils were swollen which another provider told her earlier today. - She states that she coughed up some ph legm and then felt better. - She denies fever, congestion, or ear p ain, but reports a sore throat and mild body ache. - She has no history of asthma or recent illness in the household. - She denies chills, CP, SOB, abd pain, or n/v/d. - She denies MARTINEZ, dizziness, sick contact s, or travel. Physical Exam General: Cooperative, healthy appearing, comfortable and no acute distress Orientation/consciousness: Patient oriented x3 Limitations: No limitations Head: Normal to inspection Ears: Fluid present in ears, hearing grossly normal bilaterally, external ears normal Nose: Normal external nose present, normal nares present, and no nasal discharge present. Face and sinus: Sinuses nontender to palpation. Mouth: Normal oral and palatal mucosa present and moist mucous membranes noted. Throat: Tonsils slightly swollen. Uvula is midline. Posterior oropharynx with slight erythema and no exudates. Eyes: Appearance normal, both eyes and all related structures Neck: Normal visual inspection, full ROM. No lymphadenopathy noted. Respiratory: Clear to auscultation bilaterally. Normal respiratory effort, able to speak in complete sentences. No respiratory distress, not tachypneic, no tripod positioning and no use of accessory muscles. Cardiovascular: Regular rate and rhythm. Normal S1 and S2 Skin: No rashes or lesions noted Patient was informed and verbally consented to the use of an ambient scribe for clinic note documentation during this visit [facility] Medical History (Updated 06/16/25 @ 14:23 by Enedina Newell PA-C) GERD (gastroesophageal reflux disease) History of in vitro fertilization Left lateral knee pain PCOS (polycystic ovarian syndrome) Surgical History (Updated 02/11/25 @ 14:09 by VAZQUEZ Boland) Hx of colonoscopy H/O esophagogastroduodenoscopy History of section History of cholecystectomy History of tubal ligation Family History Mother History of breast cancer Cervical cancer Family/Other History of breast cancer Social History Housing: House Alcohol intake: current Alcohol intake frequency: 0-2 drinks per day Alcohol type: beer Patient Tobacco Use Status: Former Tobacco user e-Cigarette/Vaping Use: Never Used service: No Current occupational status: unemployed Sexual orientation: Straight/Heterosexual Gender identity: Female Cognitive needs: No Hearing needs: No Vision needs: Yes Review of Systems Const All systems reviewed & are unremarkable except as noted in HPI and below Physical Exam Vital Signs: Last Vital Signs Temp 98.4 F 08/11/25 14:54 Pulse 79 08/11/25 14:54 BP 112/80 08/11/25 14:54 Pulse Ox 99 08/11/25 14:54 Oxygen Delivery Method Room Air 08/11/25 14:54 BMI result Body Mass Index 35.2 Assessment & Plan Assessment & Plan (1) Sore throat: Code(s): J02.9 - Acute pharyngitis, unspecified Plan Most likely URI vs viral illness vs strep vs post nasal drip rapid strep neg in the office plan - Monitor symptoms and provide supportive care. - Conducted a viral culture to identify any viral pathogens. - Prescribed a decongestant to alleviate symptoms and reduce ear fluid. - tylenol or motrin as needed - follow up with PCP Orders: Orders AMB Rapid Strep Screen Today Z13.9 - Encounter for screening, unspecified Resp Pathogen Panel [place] [facility] J06.9 - Acute upper respiratory infection, unspecified Medications: New cetirizine-pseudoephedrine 5-120 mg ER 1 tab PO BID 14 tabs 0RF 7 days fluticasone propionate 50 mcg/actuation administer into each nostril 1 spray intranasal Q12H 16 grams 0RF Coding Level of Care Code Est Pt Level 3 (06954) Diagnoses Sore throat J02.9
--- OUTSIDE RECORDS SUMMARY | 2025-08-11 18:10 | XMS_ITS | Encounter Summary ---
Author Organization [employer] [facility] Address [address] [place] [address] Care Team Providers Care Mild Disabilities Teacher Name Role Phone Unavailable Primary Care Provider Unavailabl e Encounter Details Date Type Department Care Team (Latest Contact Info) Description 03/05/2022 Abstract [facility] CONVERSIONS Dental, Provider, DDS Social History Tobacco Use Types Packs/Day Years Used Date Smoking Tobacco: Never Assessed Comments Unknown Sex and Gender Information Value Date Recorded Sex Assigned at Female 08/27/2022 10:26 AM EDT Legal Sex Female 10:26 AM EDT Gender Identity Female 10/10/2022 10:04 AM EST Sexual Orientation Choose not to disclose 2021 10:26 AM EDT documented as of this encounter Plan of Treatment Not on file documented as of this encounter Visit Diagnoses Not on filedocumented in this encounter
--- OUTSIDE RECORDS SUMMARY | 2025-08-11 18:10 | XMS_ITS | Encounter Summary ---
Author Organization [employer] [facility] Address [address] [place] [address] Care Team Providers Care Print Journalist Name Role Phone Unavailable Primary Care Provider Unavailabl e Encounter Details Date Type Department Care Team (Late st Contact Info) Description 03/28/2023 Abstract [facility] ADULT DENTAL [address] [place], [place] [phone] Samuel, Eden [address] [place] [address] Social History Tobacco Use Types Packs/Day Years [...]
--- OUTSIDE RECORDS SUMMARY | 2025-08-11 18:10 | XMS_ITS | Encounter Summary ---
Author Organization [employer] [facility] Address [address] [place] [address] Care Team Providers Care Retirement Actuary Name Role Phone Unavailable Primary Care Provider Unavailabl e Encounter Details Date Type Department Care Team (Late st Contact Info) Description 03/28/2023 Abstract [facility] ADULT D[facility] [address] [place], [place] [phone] Samuel, Eden [address] [place] [address] Social History Tobacco Use Types Packs/Day Years [...]
--- OUTSIDE RECORDS SUMMARY | 2025-08-11 18:10 | XMS_ITS | Encounter Summary ---
Author Organization [employer] [facility] Address [address] [place] [address] Care Team Providers Care Sonar Technician Name Role Phone Unavailable Primary Care Provider Unavailabl e Encounter Details Date Type Department Care Team (Latest Contact Info) Description 12/22/2018 Abstract [facility] CONVERSIONS Dental, Provider, DDS Social History Tobacco [...]
--- OUTSIDE RECORDS SUMMARY | 2025-08-11 18:10 | XMS_ITS | Encounter Summary ---
Author Organization [employer] [facility] Address [address] [place] [address] Care Team Providers Care Appeals Specialist Name Role Phone Unavailable Primary Care Provider Unavailabl e Encounter Details Date Type Department Care Team (Latest Contact Info) Description 12/24/2019 Abstract [facility] CONVERSIONS Dental, Provider, DDS Social [...]
--- OUTSIDE RECORDS SUMMARY | 2025-08-11 18:10 | XMS_ITS | Clinical Summary ---
Author Organization [facility] Address [address] [place] [address] Care Team Providers Care Electrical Troubleshooter Name Role Phone Unavailable Primary Care Provider Unavailabl e Allergies No known active allergies Medications metFORMIN (Glucophage) 250 MG split tablet Active acetaminophen (Tylenol) 325 MG tablet Take 1 tablet by mouth every 4 (four) hours. 6 Active acetaminophen-c odeine (Tylenol w/ Codeine #3) 300-30 MG tablet take 1 tablet by oral route every 6 hours prn pain 6 Active amoxicillin (Amoxil) 500 MG capsule take 1 capsule (500MG) by oral route every 8 hours until done 6 Active medroxyPROGESTE [place] (Provera) 10 MG tablet Active chlorhexidine (Peridex) 0.12 % solutionIndicat ions:Gingivitis Swish 15 mL (one capful) in mouth morning and night for 1 minute for 2 weeks. Do not use longer than two weeks to prevent tooth staining. 473 mL 3 Active Additional Information Patient not taking.Reported on 08/11/2025 spironolactone (Aldactone) 100 MG tablet 3 Active Creon 0739-1280 units capsule 3 Active famotidine (Pepcid) 40 MG tablet 3 Active Active Problems Problem Noted Date Diagnosed Date Stage 3 grade B localized pe riodontitis per AAP/EFP 2017 classification 08/11/2025 Staining of multiple teeth 08/07/2024 Dental calculus 07/30/2023 Periodontal disease 07/30/2023 Encounters Date Type Department Care Team Description 08/11/2025 11:00 AM EDT Office Visit [facility] [address] [place] [address] Eden Baker Stage 3 grade B localized periodontitis per AAP/EFP 2017 classification (Primary Dx); Dental calculus from Last 3 Months Social History Tobacco Use Types Packs/Day Years Used Date Smoking Tobacco: Never Passive Smoke Exposure: Never Smokeless Tobacco: Never Tobacco Cessation:Counseling Given: Not Answered Alcohol Use Standard Drinks/Week Comments Yes 12 (1 standard drink = 0.6 oz pu re alcohol) Comments Unknown Sex and Gender Information Value Date Recorded Sex Assigned at Female 08/27/2022 10:26 AM EDT Legal Sex Female 10:26 AM EDT Gender Identity Female 10/10/2022 10:04 AM EST Sexual Orientation Choose not to disclose 2021 10:26 AM EDT Last Filed Vital Signs Vital Sign Reading Time Taken Comments Blood Pressure 126/72 08/11/2025 10:57 AM EDT Pulse 96 08/11/2025 10:57 AM EDT Temperature - - Respiratory Rate - - Oxygen Saturation - - Inhaled Oxygen Concentration - - Weight - - Height - - Body Mass Index - - Plan of Treatment Health Maintenance Due Date Last Done Comments CT Colonography 1976 Colonoscopy 1976 Colorectal Cancer Screening 1976 Depression Screening 1976 FIT DNA/Cologuard 1976 FIT 1976 FOBT 1976 HIV Screening 1976 SDOH Screening 1976 Sigmoidoscopy 1976 Disability Screening 1976 Alcohol/Substance Use Screening 1988 Family Planning (PISQ) 1991 Hepatitis C Screening 1994 DTaP/Tdap/Td Vaccines (1 - Tdap) 1995 Pap Smear 1997 Cervical Cancer Screening 2006 HPV/Cotest 2006 Mammogram 2016 Influenza Vaccine (#1) 2025 , 08/20/2023, 10/15/2022, Additional history exists Dental Oral Exam 02/10/2026 08/11/2025, 08/2024, 03/20/2023 Dental Prophylaxis 02/10/2026 08/11/2025, 0 02/08/2025, 08/07/2024, Additional history exists Zoster Vaccines (1 of 2) 2026 Tobacco Screening 08/11/2026 08/11/2025 Dental X-Ray: Bitewings 08/12/2026 08/11/20 25, 08/07/2024, 07/04/2023, Additional history exists Dental X-Ray: Full Mouth 08/08/2027 08/07/2024, 11/29 RSV Patients and Patients Aged 60 years or older (1 - 1-dose 75+ series) 2051 Hepatitis A Vaccines Completed 07/14/2007, 02/07/2007, 01/08/2007, Additional history exists Hepatitis B Vaccines Completed 09/19/2015, 07/14/2007, 02/07/2007, Additional history exists COVID-19 Vaccine Completed 09/28/2024, 03/2021, 01/31/2021 HIB Vaccines Aged Out No longer eligi ble based on patient's age to complete this topic HPV Vaccines Aged Out No longer eligi ble based on patient's age to complete this topic IPV Vaccines Aged Out No longer eligi ble based on patient's age to complete this topic Meningococcal B Vaccine Aged Out No l onger eligible based on patient's age to complete this topic Meningococcal Vaccine Aged Out No vu ofelia eligible based on patient's age to complete this topic Pneumococcal Vaccine: Pediatrics (0 to 5 Years) and At-Risk Patients (6 to 49) Years Aged Out No longer eligible based on patient's age to complete this topic RSV under 20 months Aged Out No longe r eligible based on patient's age to complete this topic Rotavirus Vaccines Aged Out No longer eligible based on patient's age to complete this topic Procedures Procedure Name Priority Date/Time Associated Diagnosis Comments 10,11 INTRAORAL - PERIAPICAL EACH ADDITIONAL RADIOGRAPHIC IMAGE Routine 08/11/2025 11:00 AM EDT Stage 3 grade B localized periodontitis per AAP/EFP 2017 classification Dental calculus 24,25 INTRAORAL - PERIAPICAL EACH ADDITIONAL RADIOGRAPHIC IMAGE Routine 08/11/2025 11:00 AM EDT Stage 3 grade B localized periodontitis per AAP/EFP 2017 classification Dental calculus PROPHYLAXIS - ADULT Routine 08/11/2025 1 1:00 [...] periodontitis per AAP/EFP 2017 classification Dental calculus ORAL HYGIENE INSTRUCTIONS Routine 08/11/2025 11:00 AM EDT Stage 3 grade B localized periodontitis per AAP/EFP 2017 classification Dental calculus BITEWINGS - 4 RADIOGRAPHIC IMAGES Routine 08/11/2025 11:00 AM EDT Stage 3 grade B localized periodontitis per AAP/EFP 2017 classification Dental calculus PERIODIC ORAL EVALUATION - ESTABLISHED PATIENT Routine 08/11/2025 11:00 AM EDT INTRAORAL - COMPLETE SERIES OF RADIOGRAPHIC IMAGES Routine 08/07/2024 8:00 AM EDT Dental calculus Staining of multiple teeth from Last 3 Months or Most Recently Relevant to Health Maintenance Insurance DENTAL - HSN PARTIAL (MEDICAID)
--- OUTSIDE RECORDS SUMMARY | 2025-08-11 18:10 | XMS_ITS | Encounter Summary ---
Author Organization [facility] [facility] Address [address] [place] [address] Care Team Providers Care Heel Sorter Name Role Phone Unavailable Primary Care Provider Unavailabl e Encounter Details Date Type Department Care Team (Late st Contact Info) Description 04/05/2023 Abstract [facility] AD[facility] D[facility] [address] [place], [place] [phone] Samuel, Eden [address] [place] [address] Social History Tobacco Use Types Packs/Day Years [...]
== END 2025-08-11 16:07 | disposition home or self-care (01) ==
PROVIDERS: PCP Internal Medicine; Visit Provider Physician Assistant Medical
DX: J02.9 Acute pharyngitis, unspecified (principal)

== ENCOUNTER 2025-08-12 14:04 | Outpatient (AMB) | payer OTHER, SELFPAY ==
--- OUTSIDE RECORDS SUMMARY | 2025-08-11 11:00 | XMS_ITS | Encounter Summary ---
Author Organization [employer] [facility] Address [address] 7[address] [place] [address] Care Team Providers Care Director Of Education And Training Name Role Phone Unavailable Primary Care Provider Unavailabl e Reason for Visit * Reason Comments Routine Cleaning Dental Exam x-rays perio chart Encounter Details Date Type Department Care Team (Latest Contact Info) Description 08/11/2025 11:00 AM EDT Office Visit [facility] ADULT DENTAL [address] [place] [address] Eden Baker [address] [place] [address] Stage 3 grade B localized periodontitis per AAP/EFP 2017 classification (Primary Dx); Dental calculus Social History Tobacco Use Types Packs/Day Years [...] not to disclose 2021 10:26 AM EDT documented as of this encounter Last Filed Vital Signs Vital Sign Reading Time Taken Comments Blood Pressure 126/72 08/11/2025 10:57 AM EDT Pulse 96 08/11/2025 10:57 AM EDT Temperature - - Respiratory Rate - - Oxygen Saturation - - Inhaled Oxygen Concentration - - Weight - - Height - - Body Mass Index - - documented in this encounter Progress Notes * Eden Baker - 08/11/2025 11:00 AM EDT Patient ID: Elma Sanchez is a 50 y.o. female. Time Out: Timeout Date: 08/11/25, Timeout Time: 1105 (X-rays, P. exam, prophy,perio chart) Location: [facility] Tooth: Maxilla and Mandible Procedure: Exam, X-rays, Prophylaxis, and Perio chart Verified the above with patient, traffic assistant, and provider. Confirmed via patient's chart, intraorally and by radiographs. Oyster Buyer: not applicable Medical Hx: Vitals: Blood pressure 126/72, pulse 96. Medications, Med Hx reviewed with patient and updated in chart. Treatment Provided Dental procedures in this visit D0120 - PERIODIC ORAL EVALUATION - ESTABLISHED PATIENT (Completed) Service provider: Alvarado Bynum DDS Billstephani provider: Alvarado Bynum DDS D0274 - BITEWINGS - 4 RADIOGRAPHIC IMAGES (Completed) Service provider: Eden Iqbal provider: Alvarado Bynum DDS D0220 - INTRAORAL - PERIAPICAL FIRST RADIOGRAPHIC IMAGE 6,7 (Completed) Service provider: Eden Iqbal provider: Alvarado Bynum DDS D0230 - INTRAORAL - PERIAPICAL EACH ADDITIONAL RADIOGRAPHIC IMAGE 10,11 (Completed) Service provider: Eden Baker Billstephani provider: Alvarado Bynum DDS D0230 - INTRAORAL - PERIAPICAL EACH ADDITIONAL RADIOGRAPHIC IMAGE 24,25 (Completed) Service provider: Eden Iqbal provider: Alvarado Bynum DDS D1110 - PROPHYLAXIS - ADULT (Completed) Service provider: Eden Iqbal provider: Alvarado Bynum DDS D1330 - ORAL HYGIENE INSTRUCTIONS (Completed) Service provider: Eden Iqbal provider: Alvarado Bynum DDS D9450 - CASE PRESENTATION, DETAILED AND EXTENSIVE TREATMENT PLANNING (Completed) Service provider: Eden Baker Billstephani provider: Alvarado Bynum DDS Instruments Used: Ultrasonic Scalers, Hand Scalers, and Prophy angle Oral Cancer Screening: inflamed glossal pharyngeal tissues with hypertrophy tonsils. Dr. Bynum advised Pt to see her physician. Head/Neck Exam: No Lesions Calculus: Light and Moderate Plaque: Light and Moderate Stain: Light Bleeding: Moderate and Heavy from UL, LL, UR, LR quads, posteriors Gingiva: Bleeding on probing and Edematous posterior gingiva. OH: Fair Perio Chart: Completed Exhibits pockets up to [address] Bynum recommend Pt sees a felt hat pouncing operator hand MARIA L. A genericreferral was given to patient to bring to her chosen felt hat pouncing operator hand. Pt states she has commercial dental insurance. Pt needs to call her dental insurance to get a list of felt hat pouncing operator hand who take her insurance. She needs to call periodontists from that list and choose one to make the appoint. No more prophy appoints until she gets periodontal TX at specialist. Oral hygiene instructions provided to patient including brushing technique and flossing. Recommendations: [place] two times daily, modified lopez technique, Floss daily, Electric toothbrush, Soft bristle toothbrush, [place] Tongue, Anti-sensitivity toothpaste, Listerine. Recall Frequency: NONE NV: Pt to find periodontists and stay with them until all Periodontal TX is completed and felt hat pouncing operator hand let her know that it is ok to come back for prophy appoints. Hygienist: Eden Baker RDH * Alvarado Bynum DDS - 08/11/2025 11:00 AM EDT Dental procedures in this visit D0120 - PERIODIC ORAL EVALUATION - ESTABLISHED PATIENT (Completed) Service provider: Alvarado Bynum DDS Billing provider: Alvarado Bynum DDS D0274 - BITEWINGS - 4 RADIOGRAPHIC IMAGES (Completed) Service provider: Eden Baker Billstephani provider: Alvarado Bynum DDS D0220 - INTRAORAL - PERIAPICAL FIRST RADIOGRAPHIC IMAGE 6,7 (Completed) Service provider: Eden Baker Billstephani provider: Alvarado Bynum DDS D0230 - INTRAORAL - PERIAPICAL EACH ADDITIONAL RADIOGRAPHIC IMAGE 10,11 (Completed) Service provider: Eden Baker Billing provider: Alvarado Bynum DDS D0230 - INTRAORAL - PERIAPICAL EACH ADDITIONAL RADIOGRAPHIC IMAGE 24,25 (Completed) Service provider: Eden Baker Billstephani provider: Alvarado Bynum DDS D1110 - PROPHYLAXIS - ADULT (Completed) Service provider: Eden Baker Billstephani provider: Alvarado Bynum DDS D1330 - ORAL HYGIENE INSTRUCTIONS (Completed) Service provider: Eden Baker Billstephani provider: Alvarado Bynum DDS D9450 - CASE PRESENTATION, DETAILED AND EXTENSIVE TREATMENT PLANNING (Completed) Service provider: Eden Iqbal provider: Alvarado Bynum DDS Patient ID: Elma Sanchez is a 50 y.o. female. Time Out: Timeout Date: 08/11/25, Timeout Time: 1105 (X-rays, P. exam, prophy,perio chart) Location: [facility] Tooth: Maxilla and Mandible Procedure: Exam, X-rays, and Prophylaxis Verified the above with patient, traffic assistant, and provider. Confirmed via patient's chart, intraorally and by radiographs. Oyster Buyer: not applicable Chief Complaint Patient presents with Routine Cleaning Dental Exam x-rays perio chart Medical Hx: Vitals: Blood pressure 126/72, pulse 96. Medical History[1] Medications: Encounter Medications[2] Objective HPI Soft Tissue Exam Findings added this encounter Hypertrophy tonsils on Pharynx Hypertrophy tonsils on Pharynx Asymptomatic Head and Neck Exam: Lymph Nodes, Lips, Palate, Buccal Mucosa, Floor of Mouth, Tongue, Alveolar Ridges, Oropharynx, Salivary Ducts, and Vestibules normal appearance, hypertrophic bilateral tonsils, erythematous no exudate noticed. Details: Skin NSF OCS: negative Dental Exam As charted Reference tooth chart for additional findings. Oral Cancer Risk: Low Risk Oral Hygiene Instructions: [place] two times daily, modified lopez technique, Floss daily, Electric toothbrush, Soft bristle toothbrush, [place] Tongue Caries Risk Assessment: Low- no risk factor Assessment/Plan NORMAN: Exhibits pockets up to 8 mm on molars.. I recommend Pt sees a felt hat pouncing operator hand MARIA L. A generic referral was given to patient to bring to her chosen felt hat pouncing operator hand. Pt states she has commercial dental insurance. Pt needs to call her dental insurance to get a list of felt hat pouncing operator hand who take her insurance. She needs to call periodontists from that list and choose one to make the appoint. No more prophyappoints until she gets periodontal TX at specialist. X rays were done for P. Exam purposes. Prophy: completed by Samuel Lee RDH Patient tolerated procedure well, all questions answered and expressed understanding. Dismissed in good condition. NV: NONE for now. Junior [employer] Teacher: Eden Baker RDH Dentist: Alvarado Bynum DDS [1] Past Medical History: Diagnosis Date GERD (gastroesophageal reflux disease) Periodontal disease Polycystic bilateral ovaries Pt was DX 20 years ago [2] Outpatient Encounter Medications as of 08/11/2025 Medication Sig Dispense Refill acetaminophen (Tylenol) 325 MG tablet Take 1 tablet by mouth every 4 (four) hours. acetaminophen-codeine (Tylenol w/ Codeine #3) 300-30 MG tablet take 1 tablet by oral route every 6 hours prn pain Creon [id number] units capsule famotidine (Pepcid) 40 MG tablet medroxyPROGESTERone (Provera) 10 MG tablet spironolactone (Aldactone) 100 MG tablet amoxicillin (Amoxil) 500 MG capsule take 1 capsule (500MG) by oral route every 8 hours until done (Patient not taking: Reported on 08/11/2025) chlorhexidine (Peridex) 0.12 % solution Swish 15 mL (one capful) in mouth morning and night for 1 minute for 2 weeks. Do not use longer than two weeks to prevent tooth staining. (Patient not taking: Reported on 08/11/2025) 473 mL 0 metFORMIN (Glucophage) 250 MG split tablet (Patient not taking: Reported on 08/11/2025) No facility-administered encounter medications on file as of 08/11/2025. documented in this encounter Plan of Treatment Not on file documented as of this encounter Procedures Procedure Name Priority Date/Time Associated Diagnosis Comments PROPHYLAXIS - ADULT Routine 08/11/2025 1 1:00 AM EDT Stage 3 grade B localized periodontitis per AAP/EFP 2017 classification Dental calculus PERIODIC ORAL EVALUATION - ESTABLISHED PATIENT Routine 08/11/2025 11:00 AM EDT ORAL HYGIENE INSTRUCTIONS Routine 08/11/2025 11:00 AM EDT Stage 3 grade B localized periodontitis per AAP/EFP 2017 classification Dental calculus 6,7 INTRAORAL - PERIAPICAL FIRST RADIOGRAPHIC IMAGE Routine 08/11/2025 11:00 AM EDT Stage 3 grade B localized periodontitis per AAP/EFP 2017 classification Dental calculus 10,11 INTRAORAL - PERIAPICAL EACH ADDITIONAL RADIOGRAPHIC IMAGE Routine 08/11/2025 11:00 AM EDT Stage 3 grade B localized periodontitis per AAP/EFP 2017 classification Dental calculus 24,25 INTRAORAL - PERIAPICAL EACH ADDITIONAL RADIOGRAPHIC IMAGE Routine 08/11/2025 11:00 AM EDT Stage 3 grade B localized periodontitis per AAP/EFP 2017 classification Dental calculus CASE PRESENTATION, DETAILED AND EXTENSIVE TREATMENT PLANNING Routine 08/11/2025 11:00 AM EDT Stage 3 grade B localized periodontitis per AAP/EFP 2017 classification Dental calculus BITEWINGS - 4 RADIOGRAPHIC IMAGES Routine 08/11/2025 11:00 AM EDT Stage 3 grade B localized periodontitis per AAP/EFP 2017 classification Dental calculus documented in this encounter Visit Diagnoses Diagnosis Stage 3 grade B localized periodontitis per AAP/EFP 2017 classification- Primary Dental calculus Accretions on teeth documented in this encounter
--- NOTE | 2025-08-12 14:10 | MHC.OFFVIS ---
Vital Signs 08/12/25 14:11 Height 5 ft Weight 179 lb 3.773 oz BMI 35.0 BP 134/98 H Blood Pressure Location Lt brachial Position Sitting Pulse 98 Intake Visit Reasons: 6m Intake Note: Elma presents in office today in follow up of GERD. CC: Patient reports doing well and denies having any new GI symptoms or concerns today. Fundraising Specialist Required: No Accompanied by: Self / Same As Patient Allergies codeine Adverse Reaction (Intermediate, Verified 08/12/25 14:19) N/V - abd. pain Medication List - Last Reconciled 08/12/25 by VAZQUEZ Boland cetirizine-pseudoephedrine 5-120 mg ER 1 tab PO BID 7 days famotidine 40 mg PO BEDTIME 90 days qpddyq-onwqpbbj-gsvoyij (pork) 3,000-9,500- 15,000 unit (Creon) 1 cap PO .QIDAC 90 days sennosides (Natural Senna Laxative) 8.6 mg PO BEDTIME PRN spironolactone (Aldactone) 100 mg PO BID 90 days HPI HPI 6m: Details: Assessment & Plan (1) IBS (irritable bowel syndrome): Comment: Followed by [facility] GI currently on Creon Code(s): K58.9 - Irritable bowel syndrome, unspecified Category: Medical Qualifiers: Irritable bowel syndrome type: other Qualified Code(s): K58.8 - Other irritable bowel syndrome (2) GERD (gastroesophageal reflux disease): Code(s): K21.9 - Gastro-esophageal reflux disease without esophagitis Category: Medical Qualifiers: Esophagitis presence: without esophagitis Qualified Code(s): K21.9 - Gastro-esophageal reflux disease without esophagitis Plan Kyrgyz # translates per pt request She continues to do well on her GI regimen. She continues on her Creon and senna and famotidine. Not due for repeat colonoscopy until 2026. ROV 6 mos. (they love the salad bar in cafeteria!). Medications: Refilled famotidine 40 mg PO BEDTIME 90 tabs 1RF 90 days K21.9 - Gastro-esophageal reflux disease without esophagitis kypdjg-gvzablim-nxsreyk 3,000-9,500- 15,000 unit (Creon) Take one capsule by mouth 15-30 minutes before meals 1 cap PO .QIDAC 360 caps 1RF 90 days sennosides (Senna Lax) Take 1-2 capsules by mouth at bedtime 8.6 - 17.2 mg (1 - 2 x 8.6 mg) PO BEDTIME 60 tabs 6RF constipation TODAY'S VISIT Kyrgyz # PFSH Medical History GERD (gastroesophageal reflux disease) History of in vitro fertilization Left lateral knee pain PCOS (polycystic ovarian syndrome) Surgical History Hx of colonoscopy H/O esophagogastroduodenoscopy History of section History of cholecystectomy History of tubal ligation Family History Mother History of breast cancer Cervical cancer Family/Other History of breast cancer Social History Housing: House Alcohol intake: current Alcohol intake frequency: 0-2 drinks per day Alcohol type: beer Patient Tobacco Use Status: Former Tobacco user e-Cigarette/Vaping Use: Never Used service: No Current occupational status: unemployed Sexual orientation: Straight/Heterosexual Gender identity: Female Cognitive needs: No Hearing needs: No Vision needs: Yes Review of Systems Const Denies fatigue, Denies fever(s), Denies night sweats, Denies poor appetite and Denies weight loss Eyes Details: glasses Reports requires corrective lenses ENT Reports Normal hearing present, Denies dental pain, Denies dysphagia, Denies hearing loss, Denies mouth pain, Denies odynophagia, Denies throat swelling, Denies tongue swelling and Reports other (Dentition adequate) Card Reports no additional complaints Resp Reports no additional complaints GI Details: Denies abdominal pain, Denies melena, Denies bloating, Denies hematochezia, Reports constipation, Denies GI cramping, Denies dysphagia, Denies excessive flatus, Denies early satiety, Reports heartburn, Denies diarrhea, Reports loose stools, Denies nausea, Denies odynophagia, Denies vomiting and Denies hematemesis Skin/Breast Denies pruritus, Denies lesions, Denies rash and Denies jaundice Neuro Reports Normal hearing present and Denies Abnormal speech present Endo Denies fatigue Aller/Immun Denies throat swelling and Denies tongue swelling Physical Exam Vital Signs: Last Vital Signs Pulse 98 08/12/25 14:11 BP 134/98 H 08/12/25 14:11 BMI result Body Mass Index 35.0 Const General: cooperative, no acute distress, well developed and well groomed Nutritional Appearance: well nourished and obese Orientation/consciousness: oriented to person, oriented to place and oriented to time Limitations: language barrier HEENT Head: Yes normocephalic and Yes atraumatic Eyes General: appearance normal, both eyes and all related structures Pupils: Equal, round and reactive pupils present Neck Neck: Yes normal visual inspection and Yes no lymphadenopathy Thyroid: Thyroid normal Resp Effort & Inspection: normal respiratory effort and able to speak in complete sentences Auscultation: clear to auscultation bilaterally Cardio Rate: regular rate Rhythm: regular rhythm Heart sounds: Normal, physiologic split S2 sound present Peripheral pulses: radial pulses present and posterior tibial pulses present GI Inspection: No distended, No Abdominal panniculus present and Yes obesity Palpation (GI): Soft to palpation, nontender, no guarding, not rigid and No hepatosplenomegaly present Percussion: Yes normal to percussion Auscultation: normal bowel sounds Rectal Exam - Female: deferred Skin General skin exam: no rashes or lesions noted, turgor normal, skin not dry, no jaundice, No spider nevi and no striae Rashes: no rashes Nails: normal Neuro General: oriented to person, oriented to place and oriented to time Cranial nerves: Yes Equal, round and reactive pupils present and Yes Normal hearing present Speech: No Abnormal speech present Extrem General: Yes normal to inspection, No clubbing, No cyanosis and No edema Psych Appearance: grossly normal and well kempt Mental Status: mental status grossly normal Speech and movement: Normal speech and movement present Affect: normal affect Attitude: cooperative Thought process: Normal thought process present and not confabulating Thought content: Normal thought content present Insight: Fair insight present (Psych) Judgement: Fair judgement present (Psych) Assessment & Plan Assessment & Plan (1) IBS (irritable bowel syndrome): Comment: Followed by [facility] GI currently on Creon Code(s): K58.9 - Irritable bowel syndrome, unspecified Category: Medical Qualifiers: Irritable bowel syndrome type: other Qualified Code(s): K58.8 - Other irritable bowel syndrome (2) GERD (gastroesophageal reflux disease): Code(s): K21.9 - Gastro-esophageal reflux disease without esophagitis Category: Medical Qualifiers: Esophagitis presence: without esophagitis Qualified Code(s): K21.9 - Gastro-esophageal reflux disease without esophagitis Plan Kyrgyz # translates per pt request She continues to do well on her GI regimen. She continues on her Creon and senna and famotidine. Not due for repeat colonoscopy until 2026. rov 6 mos. Coding Level of Care Code Est Pt Level 3 (16148) Diagnoses Other irritable bowel syndrome K58.8 Irritable bowel syndrome type: other Gastroesophageal reflux disease without esophagitis K21.9 Esophagitis presence: without esophagitis
[2025-08-12 14:11] VITALS: BP 134/98; PULSE 98; BMI 35.0
--- OUTSIDE RECORDS SUMMARY | 2025-08-12 17:52 | XMS_ITS | Encounter Summary ---
Author Organization [facility] Address [address] [place] [address] Care Team Providers Care Finished Goods Inspector Name Role Phone Unavailable Primary Care Provider Unavailabl e Encounter Details Date Type Department Care Team (Late st Contact Info) Description 04/05/2023 Abstract [facility] AD[facility] [address] [place], [place] [phone] Saumel, Eden [address] [place] [address] Social History Tobacco Use Types Packs/Day Years [...]
--- OUTSIDE RECORDS SUMMARY | 2025-08-12 17:52 | XMS_ITS | Clinical Summary ---
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
--- OUTSIDE RECORDS SUMMARY | 2025-08-12 17:52 | XMS_ITS | Encounter Summary ---
Author Organization [facility] Address [address] [place] [address] Care Team Providers Care Undercutter Name Role Phone Unavailable Primary Care Provider Unavailabl e Encounter Details Date Type Department Care Team (Latest Contact Info) Description 12/22/2018 Abstract [facility] CONVERSIONS Dental, Provider, DDS Social History Tobacco [...]
--- OUTSIDE RECORDS SUMMARY | 2025-08-12 17:52 | XMS_ITS | Encounter Summary ---
Author Organization [facility] Address [address] [place] [address] Care Team Providers Care Cad Technician Name Role Phone Unavailable Primary Care [...]
--- OUTSIDE RECORDS SUMMARY | 2025-08-12 17:52 | XMS_ITS | Encounter Summary ---
Author Organization [employer] [employer] [facility] Address [address] [place] [address] Care Team Providers Care Transportation Services Representative Name Role Phone Unavailable Primary Care Provider Unavailabl e Encounter Details Date Type Department Care Team (Latest Contact Info) Description 12/24/2019 Abstract [facility] CONVERSIONS Dental, Provider, DDS Social History Tobacco [...]
--- OUTSIDE RECORDS SUMMARY | 2025-08-12 17:53 | XMS_ITS | Encounter Summary ---
Author Organization [facility] Address [address] [place] [address] Care Team Providers Care Abrading Machine Tender Name Role Phone Unavailable Primary Care Provider Unavailabl e Encounter Details Date Type Department Care Team (Late st Contact Info) Description 03/28/2023 Abstract [facility] ADULT DENT[facility] [address] [place], [place] [phone] Samuel, Eden [address] [place] [address] Social History Tobacco Use Types Packs/Day Years [...]
--- OUTSIDE RECORDS SUMMARY | 2025-08-12 17:53 | XMS_ITS | Encounter Summary ---
Author Organization [facility] Address [address] [place] [address] Care Team Providers Care Gas Line Installer Name Role Phone Unavailable Primary Care Provider Unavailabl e Encounter Details Date Type Department Care Team (Late st Contact Info) Description 03/28/[address] [facility] ADULT D[facility] [address] [place], [place] [phone] Samuel, Eden [address] [place] [address] Social History Tobacco Use Types Packs/Day Years [...]
== END 2025-08-12 14:36 | disposition home or self-care (01) ==
LOC: HO.HGI 14:05
PROVIDERS: PCP Internal Medicine; Visit Provider Nurse Practitioner
DX: K58.8 Other irritable bowel syndrome (principal); K21.9 Gastro-esophageal reflux disease without esophagitis
CPT/HCPCS: 99213

== ENCOUNTER → 2025-08-12 14:04 | Outpatient (BNVA) | payer OTHER, SELFPAY | PROVIDERS: PCP Internal Medicine; Visit Provider Nurse Practitioner | DX: K21.9 Gastro-esophageal reflux disease without esophagitis (principal); K58.8 Other irritable bowel syndrome | CPT/HCPCS: 99212 ==

== ENCOUNTER 2025-08-26 10:07 | Outpatient (AMB) | payer OTHER, SELFPAY ==
--- NOTE | 2025-08-26 10:21 | MHC.OFFVIS ---
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 Patient was referred by Meagan Contreras from [facility]. Patient had multiple Walk-In Clinic visits for her back pain. On 04/08/25 she was given scripts for diclofenac sodium 50 mg PO Q12H PRN 20 tabs 0RF for pain and cyclobenzaprine 5 mg PO Q8H PRN 20 tabs 0RF for her muscle spasms. On 06/16/25 she was prescribed methocarbamol 750 mg PO TID 14 tabs 0RF. At today's visit she states that summer of this year is when she noticed that her lower back pain and that it was radiating into her legs. Patient states that she seek treatment from the walk in where they gave her muscle relaxers to help receive the pain, she noted it did not. She added that she did attended physical therapy with [facility] and she is currently doing her at home exercises. Allergies codeine Adverse Reaction (Intermediate, Verified 08/12/25 14:19) N/V - abd. pain Medication List - Last Reconciled 08/26/25 by Kaylen Mensah MD cetirizine-pseudoephedrine 5-120 mg ER 1 tab PO BID 7 days famotidine 40 mg PO BEDTIME 90 days erekhk-pvhgkvkb-zhintof (pork) 3,000-9,500- 15,000 unit (Creon) 1 cap PO .QIDAC 90 days sennosides (Natural Senna Laxative) 8.6 mg PO BEDTIME PRN spironolactone (Aldactone) 100 mg PO BID 90 days HPI Comments Details: Reviewed notes from PCP. Reviewed Lumbar x-ray independently, showed loss of lordosis and C5-6 disc space narrowing. Posterior neck pain, left upper trapezius and shoulder pain. With PT, it does not shoot down anymore. Also the numbness on the left hand has resolved. Last PT 1 month ago. 3/10 pain level. [facility] Medical History GERD (gastroesophageal reflux disease) History of in vitro fertilization Left lateral knee pain PCOS (polycystic ovarian syndrome) Surgical History Hx of colonoscopy H/O esophagogastroduodenoscopy History of section History of cholecystectomy History of tubal ligation Family History Mother History of breast cancer Cervical cancer Family/Other History of breast cancer Social History Housing: House Alcohol intake: current Alcohol intake frequency: 0-2 drinks per day Alcohol type: beer Patient Tobacco Use Status: Former Tobacco user e-Cigarette/Vaping Use: Never Used service: No Current occupational status: unemployed Sexual orientation: Straight/Heterosexual Gender identity: Female Cognitive needs: No Hearing needs: No Vision needs: Yes Review of Systems Const All systems reviewed & are unremarkable except as noted in HPI and below Physical Exam Exam Exam: Constitutional: Patient appears to be in no acute distress, well nourished and well developed. Patient was appropriately conversant and oriented. Good historian. MSK: Inspection reveals appropriate head and neck positioning. Tender area left upper trapezius. Cervical ROM was full. Spurling's sign negative. Bilateral shoulder, elbow and wrist ROM WNL. No ligamentous laxity or crepitance. No increased effusion. Negative Paul sign. Negative empty can sign. Strength is 5/5 in all muscle groups tested. No increased tone noted. Neurological: Neurologic examination of the upper and lower extremities was nonfocal with intact sensation, muscle stretch reflexes and without focal motor deficits . Cuevas?s negative bilaterally. Babinski was down going bilaterally. Clonus was negative. Gait is non-antalgic without loss of balance. Results Reviewed Results Reviewed: Ordering Physician: Meagan Contreras PA-C Date of Service: 04/08/25 Procedure(s): XR cervical spine 4V Accession Number(s): [id number] cc: Meagan Contreras PA-C; Yee Rosas MD~ EXAMINATION: XR CERVICAL SPINE CLINICAL INFORMATION: Radiculopathy, cervical region. COMPARISON: None available. TECHNIQUE: 6 views of the cervical spine, inclusive of flexion and extension views, were obtained. FINDINGS: There is straightening of the cervical lordosis. There is no prevertebral soft tissue swelling. C5-6 to measures mild disc space narrowing with small endplate osteophytes that mildly narrow the left greater than right neural foramen. XR/XR cervical spine 4V IMPRESSION: There is straightening of the expected cervical lordosis. This can be idiopathic, but can also be related to degenerative change, muscle spasm, or posterior soft tissue injury. C5-6 degenerative disc disease with mild bony foraminal narrowing. Electronically signed by: Ger Urias MD 04/08/2025 02:31 PM EDT RP I reviewed records from the following: PCP Assessment & Plan Assessment & Plan (1) Myofascial pain dysfunction syndrome: Code(s): M79.18 - Myalgia, other site Category: Medical Plan Neck pain and radicular symptoms improved with PT. Suspect it was myofascial, as seen in x-ray with loss of lordosis. No signs of radiculopathy or myelopathy on exam today. Continue home exercises learned from PT. Assessment and plan discussed with patient, and patient was agreeable. All questions were answered thoroughly. Follow up 3 months. Kaylen Mensah MD, GEOVANNI Board Certified, [place] Board [employer] Physical Medicine and Rehabilitation (ABPMR) Board Certified, [place] Board of Electrodiagnostic Medicine (ABEM) Coding Level of Care Code New Pt Level 3 (45449) Diagnoses Myofascial pain dysfunction syndrome M79.18
[2025-08-26 10:27] VITALS: BMI 35.2
--- OUTSIDE RECORDS SUMMARY | 2025-08-26 12:12 | XMS_ITS | Encounter Summary ---
Author Organization [facility] Address [address] [place] [address] Care Team Providers Care Concentrator Operator Name Role Phone Unavailable Primary Care Provider Unavailabl e Encounter Details Date Type Department Care Team (Late st Contact Info) Description 04/05/2023 Abstract [facility] ADULT DENT[facility] [address] [place], [place] [phone] Samuel, Eden [address] [place] [address] Social History Tobacco Use Types Packs/Day Years [...]
--- OUTSIDE RECORDS SUMMARY | 2025-08-26 12:13 | XMS_ITS | Encounter Summary ---
Author Organization [facility] Address [address] [place] [address] Care Team Providers Care Kindergarten Teacher Assistant Name Role Phone Unavailable Primary Care Provider Unavailabl e Encounter Details Date Type Department Care Team (Late st Contact Info) Description 03/28/2023 Abstract [facility]ULT [facility] [address] [place], [place] [phone] Samuel, [place] [address] [place] [id number] Social History Tobacco Use Types Packs/Day Years [...]
--- OUTSIDE RECORDS SUMMARY | 2025-08-26 12:13 | XMS_ITS | Clinical Summary ---
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
--- OUTSIDE RECORDS SUMMARY | 2025-08-26 12:13 | XMS_ITS | Encounter Summary ---
Author Organization [facility] Address [address] [place] [address] Care Team Providers Care Cloud Systems Administrator Name Role Phone Unavailable Primary Care Provider Unavailabl e Encounter Details Date Type Department Care Team (Latest Contact Info) Description 12/24/2019 Abstract [facility] CONVERSIONS Dental, Provider, DDS Social History Tobacco [...]
--- OUTSIDE RECORDS SUMMARY | 2025-08-26 12:13 | XMS_ITS | Encounter Summary ---
Author Organization [facility] [employer] Address [address] [place] [address] Care Team Providers Care Lockstitch Back Maker Name Role Phone Unavailable Primary Care Provider Unavailabl e Encounter Details Date Type Department Care Team (Late st Contact Info) Description 03/28/2023 Abstract [facility] ADULT DENTAL [address] [place], [place] [phone] Samuel, [place] [address] [place] [address] Social History Tobacco Use Types Packs/Day Years [...]
--- OUTSIDE RECORDS SUMMARY | 2025-08-26 12:13 | XMS_ITS | Encounter Summary ---
Author Organization [facility] Address [address] [place] [address] Care Team Providers Care Hospice Executive Director Name Role Phone Unavailable Primary Care Provider Unavailabl e Encounter Details Date Type Department Care Team (Latest Contact Info) Description 12/22/2018 Abstract [facility] CONVERSIONS Dental, Provider, DDS Social History Tobacco [...]
--- OUTSIDE RECORDS SUMMARY | 2025-08-26 12:13 | XMS_ITS | Encounter Summary ---
Author Organization [employer] [facility] Address [address] [place] [address] Care Team Providers Care Beater Engineer Name Role Phone Unavailable Primary Care [...]
== END 2025-08-26 10:52 | disposition home or self-care (01) ==
LOC: HO.HOS 10:08
PROVIDERS: PCP Internal Medicine; Visit Provider Physical Medicine & Rehabilitation
DX: M79.18 Myalgia, other site (principal)
CPT/HCPCS: 99203

== ENCOUNTER → 2025-08-26 10:07 | Outpatient (BNVA) | payer OTHER, SELFPAY | PROVIDERS: PCP Internal Medicine; Visit Provider Physical Medicine & Rehabilitation | DX: M79.18 Myalgia, other site (principal) | CPT/HCPCS: 99202 ==